=== PATIENT | female | born 1975 | race Two or more races ===

== ENCOUNTER 2016-03-28 21:36 | Observation (INO) | payer OTHER ==
[2016-03-28] MEDS ORDERED: HYDROmorphone 1 MG/ML 1 ML SYRINGE IVP STA ×2 (22:16→23:44)
--- NOTE | 2016-03-28 22:22 | ED ---
Back Pain HPI - General Chief Complaint: Back Pain/Injury Stated Complaint: leg pain Time Seen by Provider: 03/28/16 21:57 Source: patient, RN notes reviewed Limitations: no limitations - History of Present Illness Initial Comments: Patient is a 40-year-old female presents emergency room for evaluation of back pain. Patient states she had a laminectomy done by Dr. Mcbride on 03/04/16. Patient states she had history of low back pain with left leg radiculopathy. Patient states the pain did subside after surgery. Patient states she is now having increasing pain that radiates from the left side of her lower back down her buttocks and down her entire leg. Patient states the pain began about 2 days ago. Patient states she was has numbness and tingling going down her foot. Patient states she went to [facility] 2 days ago and they gave her pain medications and sent her home with Neurontin to add onto her pain medication regimen. Patient states the pain is worse today. Patient states she 's been taking Percocet and Neurontin with no relief of symptoms. Patient denies urinary or fecal incontinence. Patient does state it is starting to feel numb in her left groin. Patient denies any recent falls or trauma since the surgery. Patient denies fevers or chills. Patient denies chest pain or shortness of breath. Patient denies nausea or vomiting. Patient denies headache or dizziness. - Related Data Home Medications Medication Instructions Recorded Confirmed Ergocalciferol [Vitamin D2] 50,000 unit PO Q7D 11/12/14 03/28/16 Diazepam [Valium] 5 mg PO BID 03/02/16 03/28/16 Levofloxacin [Levaquin] 500 mg PO QAM 03/02/16 03/28/16 Levothyroxine Sodium [Synthroid] 125 mg PO QAM 03/02/16 03/28/16 busPIRone HCl [Buspar] 10 mg PO BID 03/02/16 03/28/16 oxyCODONE-APAP 5-325MG [Percocet 1 tab PO Q6HR PRN 03/02/16 03/28/16 5-325 mg] Venlafaxine HCl [Effexor XR] 250 mg PO DAILY 03/04/16 03/29/16 Previous Rx's Medication Instructions Recorded oxyCODONE-APAP 5-325MG [Percocet 1 tab PO Q6HR PRN #60 tab 03/05/16 5-325 mg] Allergies Allergy/AdvReac Type Severity Reaction Status Date / Time No Known Allergies Allergy Verified 03/28/16 21:51 Review of Systems ROS Statement: Those systems with pertinent positive or pertinent negative responses have been documented in the HPI. ROS Other: All systems not noted in ROS Statement are negative. Past Medical History Past Medical History: Hypertension, Thyroid Disorder Additional Past Medical History / Comment(s): CURRENT: UTI, BEING TREATED WITH ANTIBIOTICS.HAS BEEN OFF ANTIHYPERTENSIIVE MED SINCE WEIGHT LOSS POST LAB BAND OR. History of Any Multi-Drug Resistant Organisms: None Reported Past Surgical History: Tubal Ligation, Uterine Ablation Additional Past Surgical History / Comment(s): LAP BAND. LYMPH NODE REMOVED-NEG , ABLATION WITH NOVASURE.03-04-16 lumbar laminectomy/discetomy Past Anesthesia/Blood Transfusion Reactions: Motion Sickness, Postoperative Nausea & Vomiting (PONV) Past Psychological History: No Psychological Hx Reported Smoking Status: Current every day smoker Past Alcohol Use History: Rare Additional Past Alcohol Use History / Comment(s): SMOKED FOR 19 YR, 1PPD. Past Drug Use History: None Reported - Past Family History Mother Family Medical History: Cancer, Hyperlipidemia, Hypertension Additional Family Medical History / Comment(s): KIDNEY cancer, aortic stent, acoustic neuroma(ear) Father Family Medical History: Thyroid Disorder General Exam - General Exam Comments Initial Comments: Laying in exam room, uncomfortable secondary to pain. Limitations: no limitations General appearance: alert Head exam: Present: atraumatic, normocephalic, normal inspection Eye exam: Present: normal appearance ENT exam: Present: normal exam Neck exam: Present: normal inspection Respiratory exam: Present: normal lung sounds bilaterally. Absent: respiratory distress Cardiovascular Exam: Present: regular rate, normal rhythm, normal heart sounds Extremities exam: Present: normal inspection, full ROM, normal capillary refill Back exam: Absent: normal inspection ( vertical surgical incision over lumbosacral spine. No drainage, surrounding erythema or signs of infection.) Neurological exam: Present: alert, oriented X3 Psychiatric exam: Present: normal affect Skin exam: Present: warm, dry, intact, normal color. Absent: rash Course Vital Signs 03/28/16 03/28/16 03/28/16 21:49 21:51 22:51 Temperature 98.3 F Pulse Rate 91 84 89 Respiratory 20 16 16 Rate Blood Pressure 122/73 121/74 119/69 O2 Sat by Pulse 97 96 97 Oximetry 03/29/16 03/29/16 03/29/16 00:00 00:36 01:49 Temperature Pulse Rate 76 84 69 Respiratory 16 16 16 Rate Blood Pressure 119/74 123/78 112/68 O2 Sat by Pulse 97 98 98 Oximetry 03/29/16 02:25 Temperature Pulse Rate 73 Respiratory 16 Rate Blood Pressure 123/77 O2 Sat by Pulse 98 Oximetry Medical Decision Making - Medical Decision Making Patient is a 40-year-old female presents emergency room with worsening back pain post op laminectomy. Labs show no signs of infection. CT lumbosacral spine : There are postsurgical changes with L4 laminectomy. His moderate spinal stenosis at L4-L5. Exam is limited by lack of contrast. There is also L5-S1 disc herniation centrally towards the left side with spinal stenosis. MRI scanner contrast exam would be helpful for further evaluation to evaluate the degree of stenosis (per radiology). Case discussed with Dr. Winters. Dr. Winters discussed case with Dr. Gudino who agreed to admit patient. Patient will be admitted for further evaluation of intractable back pain. Plan discussed with patient. - Lab Data Result diagrams: 03/28/16 22:25 03/28/16 22:25 Lab Results 03/28/16 03/28/16 03/28/16 Range/Units 22:25 22:25 23:08 WBC 7.9 (3.8-10.6) k/uL RBC 4.36 (3.80-5.40) m/uL Hgb 12.4 D (11.4-16.0) gm/dL Hct 39.0 (34.0-46.0) % MCV 89.5 (80.0-100.0) fL MCH 28.5 (25.0-35.0) pg MCHC 31.9 (31.0-37.0) g/dL RDW 14.1 (11.5-15.5) % Plt Count 214 (150-450) k/uL Neutrophils % 51 % Lymphocytes % 39 % Monocytes % 5 % Eosinophils % 3 % Basophils % 1 % Neutrophils # 4.1 (1.3-7.7) k/uL Lymphocytes # 3.1 (1.0-4.8) k/uL Monocytes # 0.4 (0-1.0) k/uL Eosinophils # 0.2 (0-0.7) k/uL Basophils # 0.0 (0-0.2) k/uL Sodium 144 (137-145) mmol/L Potassium 4.0 (3.5-5.1) mmol/L Chloride 109 H (98-107) mmol/L Carbon Dioxide 26 (22-30) mmol/L Anion Gap 9 mmol/L BUN 11 (7-17) mg/dL Creatinine 0.70 (0.52-1.04) mg/dL Est GFR (MDRD) Af Amer >60 (>60 ml/min/1.73 sqM) Est GFR (MDRD) Non-Af >60 (>60 ml/min/1.73 sqM) Glucose 75 (74-99) mg/dL Calcium 9.0 (8.4-10.2) mg/dL Total Bilirubin 0.1 L (0.2-1.3) mg/dL AST 32 (14-36) U/L ALT 36 (9-52) U/L Alkaline Phosphatase 71 (38-126) U/L Total Protein 6.5 (6.3-8.2) g/dL Albumin 3.7 (3.5-5.0) g/dL Urine Color Yellow Urine Appearance Clear (Clear) Urine pH 5.5 (5.0-8.0) Ur Specific [place] 1.017 (1.001-1.035) Urine Protein Negative (Negative) Urine Glucose (UA) Negative (Negative) Urine Ketones Negative (Negative) Urine Blood Negative (Negative) Urine Nitrate Negative (Negative) Urine Bilirubin Negative (Negative) Urine Urobilinogen <2.0 (<2.0) mg/dL Ur Leukocyte Esterase Trace H (Negative) Urine RBC 1 (0-5) /hpf Urine WBC 4 (0-5) /hpf Ur Squamous Epith Cells 2 (0-4) /hpf Urine Bacteria Rare H (None) /hpf Hyaline Casts 1 (0-2) /lpf Urine Mucus Few H (None) /hpf - Radiology Data Radiology results: report reviewed, image reviewed Disposition Clinical Impression: Intractable back pain Disposition: [facility] Condition: Stable Decision Date: 03/29/16
[2016-03-28 22:44] LABS: Basophils % (A) 1 %; CHCM 33.7; Eosinophils # (A) 0.2 k/uL (0-0.7); Eosinophils % (A) 3 %; HDW 2.36; Luc # (Auto) 0.14; Luc % (Auto) 2; Lymphocytes # (A) 3.1 k/uL (1.0-4.8); Lymphocytes % (A) 39 %; MCH 28.5 pg (25.0-35.0); MCHC 31.9 g/dL (31.0-37.0); MCV 89.5 fL (80.0-100.0); Monocytes # (A) 0.4 k/uL (0-1.0); Monocytes % (A) 5 %; Neutrophils # (A) 4.1 k/uL (1.3-7.7); Neutrophils % (A) 51 %; RBC 4.36 m/uL (3.80-5.40); RDW 14.1 % (11.5-15.5); WBC 7.9 k/uL (3.8-10.6); WBC (Perox) 7.92
[2016-03-28 22:53] LABS: ALT 36 U/L (9-52); AST 32 U/L (14-36); Alkaline Phosphatase 71 U/L (38-126); Anion Gap 9 mmol/L; Blood Urea Nitrogen 11 mg/dL (7-17); Carbon Dioxide 26 mmol/L (22-30); Chloride 109 mmol/L (98-107); Glucose 75 mg/dL (74-99); Non-African American GFR(MDRD) >60 (>60 ml/min/1.73 sqM); Sodium 144 mmol/L (137-145); Total Bilirubin 0.1 mg/dL (0.2-1.3); Total Protein 6.5 g/dL (6.3-8.2)
[2016-03-28 22:55] LABS: HGB 12.4 gm/dL (11.4-16.0)
[2016-03-28 22:57] VITALS: RESP 16
[2016-03-28] MEDS ORDERED: DIAZEPAM 5 MG/ML 2 ML SYRINGE IVP STA (23:33)
[2016-03-28 23:36] LABS: Appearance,Urine Clear (Clear); Bacteria,Urine Rare /hpf; Bilirubin,Urine Negative (Negative); Glucose,Urine (UA) Negative (Negative); Ketones,Urine Negative (Negative); Leukocyte Esterase,Urine Trace (Negative); Mucus,Urine Few /hpf; Nitrite,Urine Negative (Negative); PH, Urine 5.5 (5.0-8.0); Particle Count 5579; Protein,Urine Negative (Negative); RBC,Urine 1 /hpf (0-5); Specific Gravity,Urine 1.017 (1.001-1.035); Squamous Epithelial Cell,Urine 2 /hpf (0-4); UA Billing (MACRO vs. MICRO) MICRO; Urobilinogen,Urine <2.0 mg/dL (<2.0); WBC,Urine 4 /hpf (0-5)
--- NOTE | 2016-03-29 00:21 | CT ---
EXAMINATION TYPE: CT lumbar spine wo con DATE OF EXAM: 03/28/2016 11:56 PM COMPARISON: NONE HISTORY: left leg pain, pt is s/p lumbar sx [address] DLP: 1121.20 mGycm Automated exposure control for dose reduction was used. Multiple axial sections were obtained from the level of T11-S4 with no contrast. Lumbar vertebrae have normal alignment. There is mild narrowing at L4-5 L5-S1 disc spaces. There is s ubcutaneous edema over the lower lumbar spine at L4-5. There is posterior disc herniation at L4-5 and into the spinal canal. There is spinal stenosis at L4-5. I see no bony destructive process. There is laminectomy defect at L4-5. There is a posterior small central disc herniation at L5-S1 with some na rrowing of the spinal canal. There is a developmental small spinal canal. I see no compression fractu re. There is no paraspinal mass. Sacroiliac joints appear normal. IMPRESSION: There are postsurgical changes with L4 laminectomy. There is moderate spinal stenosis at L4-5. Exam i s limited by lack of contrast. There is also L5 S1 disc herniation centrally and towards the left mahesh e with spinal stenosis. MR scan or contrast exam would be helpful for further evaluation to evaluate the degree of stenosis.
[2016-03-29] MEDS ORDERED: ORPHENADRINE 30 MG/ML 2 ML VIAL IVP STA (01:33)
[2016-03-29] MEDS ORDERED: KETOROLAC 30 MG/ML 1 ML VIAL IVP STA (01:33)
[2016-03-29] MEDS ORDERED: NALOXONE 0.4 MG/ML 1 ML VIAL IV PRN (02:03)
[2016-03-29] MEDS ORDERED: ONDANSETRON 4 MG/2 ML VIAL IVP PRN (02:03)
[2016-03-29 03:26] VITALS: BMI 24.3
[2016-03-29] MEDS: SODIUM CHLORIDE 0.9% 1,000 ML IV SCH ×2 (03:38→16:23)
[2016-03-29] MEDS: KETOROLAC 30 MG/ML 1 ML VIAL IVP SCH ×3 (05:07→17:39)
[2016-03-29] MEDS: HYDROmorphone 1 MG/ML 1 ML SYRINGE IV PRN ×3 (07:39→15:08)
[2016-03-29 10:29] VITALS: TEMP 97.9
[2016-03-29 16:20] VITALS: BP 130/87; PULSE 87
--- NOTE | 2016-04-08 14:25 | P.HPOR ---
History of Present Illness H&P Date: 04/08/16 Chief Complaint: back pain Patient was admitted through the ER to Dr. Gudino for back pain. She is post op from a back surgery performed by Dr. Mcbride in February. I ordered an MRI w/wo contrast and planned to see her later in day 2016 or have /Shreyas Luna PA-C see her the morning of March 30. . She left AMA prior to being seen or having MRI done. Past Medical History Past Medical History: Hypertension, Thyroid Disorder Additional Past Medical History / Comment(s): CURRENT: UTI, BEING TREATED WITH ANTIBIOTICS.HAS BEEN OFF ANTIHYPERTENSIIVE MED SINCE WEIGHT LOSS POST LAB BAND OR. History of Any Multi-Drug Resistant Organisms: None Reported Past Surgical History: Tubal Ligation, Uterine Ablation Additional Past Surgical History / Comment(s): LAP BAND. LYMPH NODE REMOVED-NEG , ABLATION WITH NOVASURE.03-04-16 lumbar laminectomy/discetomy Past Anesthesia/Blood Transfusion Reactions: Motion Sickness, Postoperative Nausea & Vomiting (PONV) Past Psychological History: No Psychological Hx Reported Smoking Status: Current every day smoker Past Alcohol Use History: Rare Additional Past Alcohol Use History / Comment(s): SMOKED FOR 19 YR, 1PPD. Past Drug Use History: None Reported - Past Family History Mother Family Medical History: Cancer, Hyperlipidemia, Hypertension Additional Family Medical History / Comment(s): KIDNEY cancer, aortic stent, acoustic neuroma(ear) Father Family Medical History: Thyroid Disorder Medications and Allergies Home Medications Medication Instructions Recorded Confirmed Type Multivitamins, Thera [Multivitamin] 1 tab PO DAILY 10/11/13 03/31/16 History Ferrous Sulfate [Feosol] 325 mg PO DAILY 03/29/16 03/31/16 History Levothyroxine Sodium [Synthroid] 125 mcg PO DAILY 03/29/16 03/31/16 History Venlafaxine HCl [Effexor XR] 150 mg PO DAILY 03/29/16 03/31/16 History busPIRone HCl [Buspar] 10 mg PO BID 03/29/16 03/31/16 History Diazepam [Valium] 5 mg PO TID 03/31/16 04/01/16 History Ergocalciferol (Vitamin D2) 50,000 unit PO Q7D 03/31/16 03/31/16 History [Vitamin D2] oxyCODONE-APAP 5-325MG [Percocet 1 tab PO Q8H PRN 03/31/16 04/01/16 History 5-325 mg] predniSONE 60 mg PO DIRECTED 03/31/16 04/01/16 History Allergies Allergy/AdvReac Type Severity Reaction Status Date / Time No Known Allergies Allergy Verified 04/01/16 11:06 Results - Labs Result Diagrams: 03/28/16 22:25 03/28/16 22:25 Assessment and Plan (1) Lumbar back pain with radiculopathy affecting left lower extremity Narrative/Plan: F/U with Dr. Mcbride Status: Acute
== END 2016-03-29 18:27 | disposition left against medical advice (07) ==
LOC: EC 21:36 → 5MS5E 03-29 02:03
PROVIDERS: ADMIT Orthopaedic Surgery Sports Medicine; ATTEND Orthopaedic Surgery Sports Medicine
DX: M51.27 Other intervertebral disc displacement, lumbosacral region (principal); N39.0 Urinary tract infection, site not specified; M54.10 Radiculopathy, site unspecified; M48.06 Spinal stenosis, lumbar region; R20.0 Anesthesia of skin; E07.9 Disorder of thyroid, unspecified; F17.200 Nicotine dependence, unspecified, uncomplicated; Z98.1 Arthrodesis status; Z79.899 Other long term (current) drug therapy; Z98.84 Bariatric surgery status; Z82.49 Family history of ischemic heart disease and other diseases of the circulatory system; Z80.51 Family history of malignant neoplasm of kidney
CPT/HCPCS: 99284; 96374; 96375 ×3; 96376; 36415; 80053; 85025; 81001; 72131; G0378; J2360; J3360; J1885; J1170 ×2

== ENCOUNTER 2016-03-29 23:01 | Observation (INO) | payer OTHER ==
[2016-03-29] MEDS ORDERED: SODIUM CHLORIDE 0.9% 1,000 ML IV STA (23:50)
[2016-03-29] MEDS ORDERED: SODIUM CHLORIDE 0.9% 500 ML IV STA (23:50)
[2016-03-29] MEDS ORDERED: LORazepam 2 MG/ML SYRINGE IV STA (23:50)
[2016-03-29] MEDS ORDERED: MORPHINE SULFATE 4 MG/ML SYRINGE IV STA (23:50)
--- NOTE | 2016-03-29 23:53 | ED ---
General Adult HPI - General Chief complaint: Anxiety Stated complaint: Anxiety Time Seen by Provider: 03/29/16 23:20 Source: patient, RN notes reviewed, old records reviewed Mode of arrival: wheelchair Limitations: no limitations - History of Present Illness Initial comments: This is a 40-year-old female to the ER for evaluation. Patient said yesterday for evaluation of pain. Pain in her back down her left leg slightly her left lower cavity. Patient has history of recent back surgery. Also awaiting of severe anxiety. Patient states she is very stressed out about her recent surgery, recent situation, ability to take care of her family. Ability to keep her job. Patient states her pain is very chronic in nature but is not getting better he could even be getting worse. Again denies any fevers or significant shortness of breath or chest pain. No bowel pain and nausea vomiting or diarrhea. - Related Data Home Medications Medication Instructions Recorded Confirmed Multivitamins, Thera [Multivitamin] 1 tab PO DAILY 10/11/13 03/29/16 Ferrous Sulfate [Feosol] 325 mg PO DAILY 03/29/16 03/29/16 Levothyroxine Sodium [Synthroid] 125 mcg PO DAILY 03/29/16 03/29/16 Venlafaxine HCl [Effexor XR] 75 mg PO DAILY 03/29/16 03/29/16 Venlafaxine HCl [Effexor XR] 150 mg PO DAILY 03/29/16 03/29/16 busPIRone HCl [Buspar] 10 mg PO BID 03/29/16 03/29/16 Allergies Allergy/AdvReac Type Severity Reaction Status Date / Time No Known Allergies Allergy Verified 03/29/16 23:18 Review of Systems ROS Statement: Those systems with pertinent positive or pertinent negative responses have been documented in the HPI. ROS Other: All systems not noted in ROS Statement are negative. Past Medical History Past Medical History: Hypertension, Thyroid Disorder History of Any Multi-Drug Resistant Organisms: None Reported Past Surgical History: Back Surgery, Bariatric Surgery Additional Past Surgical History / Comment(s): Band placed 11/15/[address] Caldera; L4-S1 Laminectomy Past Anesthesia/Blood Transfusion Reactions: No Reported Reaction Past Psychological History: Anxiety Smoking Status: Current every day smoker Past Alcohol Use History: None Reported Past Drug Use History: None Reported General Exam Limitations: no limitations General appearance: alert, in no apparent distress, anxious Head exam: Present: atraumatic, normocephalic, normal inspection Eye exam: Present: normal appearance, PERRL, EOMI. Absent: scleral icterus, conjunctival injection, periorbital swelling ENT exam: Present: normal exam, mucous membranes moist Neck exam: Present: normal inspection. Absent: tenderness, meningismus, lymphadenopathy Respiratory exam: Present: normal lung sounds bilaterally. Absent: respiratory distress, wheezes, rales, rhonchi, stridor Cardiovascular Exam: Present: regular rate, normal rhythm, normal heart sounds. Absent: systolic murmur, diastolic murmur, rubs, gallop, clicks GI/Abdominal exam: Present: soft, normal bowel sounds. Absent: distended, tenderness, guarding, rebound, rigid Extremities exam: Present: normal inspection, full ROM, normal capillary refill. Absent: tenderness, pedal edema, joint swelling, calf tenderness Back exam: Present: normal inspection Neurological exam: Present: alert, oriented X3, CN II-XII intact Psychiatric exam: Present: normal affect, normal mood Skin exam: Present: warm, dry, intact, normal color. Absent: rash Course Vital Signs 03/29/16 03/30/16 23:09 00:30 Temperature 98 F Pulse Rate 103 H 89 Respiratory 18 16 Rate Blood Pressure 138/90 160/105 O2 Sat by Pulse 100 100 Oximetry - Reevaluation(s) Reevaluation #1: 03/29/16 23:52 Patient will recently was admitted to Hospital see her surgeon, patient left before was able to make contact. States she got very anxious and just wanted to go home Reevaluation #2: 03/30/16 00:56 Patient's pain this point is improved, anxiety is improved EKG Findings - EKG Comments: EKG Findings:: EKG shows sinus rhythm rate of 77, CA 136, QRS 80, QTC 445 Medical Decision Making - Medical Decision Making 40 female at ER for evaluation of pain. Patient presented today for evaluation of postop pain, patient did recently Sever from back surgery, states pain is getting worse. No fevers. Patient was admitted to hospital yesterday for increasing pain symptoms. At this time patient will be admitted for postop pain evaluation - Lab Data Result diagrams: 03/30/16 00:12 Lab Results 03/30/16 03/30/16 03/30/16 Range/Units 00:12 00:12 00:12 WBC 6.7 (3.8-10.6) k/uL RBC 4.32 (3.80-5.40) m/uL Hgb 12.5 (11.4-16.0) gm/dL Hct 37.5 (34.0-46.0) % MCV 86.8 (80.0-100.0) fL MCH 28.9 (25.0-35.0) pg MCHC 33.3 (31.0-37.0) g/dL RDW 13.7 (11.5-15.5) % Plt Count 210 (150-450) k/uL Neutrophils % 65 % Lymphocytes % 26 % Monocytes % 5 % Eosinophils % 2 % Basophils % 0 % Neutrophils # 4.3 (1.3-7.7) k/uL Lymphocytes # 1.7 (1.0-4.8) k/uL Monocytes # 0.3 (0-1.0) k/uL Eosinophils # 0.2 (0-0.7) k/uL Basophils # 0.0 (0-0.2) k/uL PT 10.0 (9.0-12.0) sec INR 1.0 (<1.1) APTT 24.8 (22.0-30.0) sec D-Dimer 0.34 (<0.60) mg/L FEU Urine Color Light Yellow Urine Appearance Clear (Clear) Urine pH 8.0 (5.0-8.0) Ur Specific [place] 1.004 (1.001-1.035) Urine Protein Negative (Negative) Urine Glucose (UA) Negative (Negative) Urine Ketones Negative (Negative) Urine Blood Moderate H (Negative) Urine Nitrate Negative (Negative) Urine Bilirubin Negative (Negative) Urine Urobilinogen <2.0 (<2.0) mg/dL Ur Leukocyte Esterase Negative (Negative) Urine RBC 43 H (0-5) /hpf Urine WBC 3 (0-5) /hpf Ur Squamous Epith Cells 1 (0-4) /hpf - Radiology Data Radiology results: report reviewed (Chest x-ray 2 view negative, ultrasound left lower extremity is pending), image reviewed Disposition Clinical Impression: Acute anxiety, Post-operative pain Disposition: ADMITTED IP TO THIS [facility] Condition: Fair Instructions: Generalized Anxiety Disorder (ED)
[2016-03-30 00:40] LABS: Basophils % (A) 0 %; CH 29.8; CHCM 34.5; Eosinophils # (A) 0.2 k/uL (0-0.7); Eosinophils % (A) 2 %; HCT 37.5 % (34.0-46.0); HDW 2.44; HGB 12.5 gm/dL (11.4-16.0); Luc # (Auto) 0.11; Luc % (Auto) 2; Lymphocytes # (A) 1.7 k/uL (1.0-4.8); Lymphocytes % (A) 26 %; MCH 28.9 pg (25.0-35.0); MCHC 33.3 g/dL (31.0-37.0); MCV 86.8 fL (80.0-100.0); Mean Platelet Volume 7.8; Monocytes # (A) 0.3 k/uL (0-1.0); Monocytes % (A) 5 %; Neutrophils # (A) 4.3 k/uL (1.3-7.7); Neutrophils % (A) 65 %; RBC 4.32 m/uL (3.80-5.40); RDW 13.7 % (11.5-15.5); WBC 6.7 k/uL (3.8-10.6); WBC (Perox) 7.08
[2016-03-30 00:42] LABS: Appearance,Urine Clear (Clear); Bilirubin,Urine Negative (Negative); Glucose,Urine (UA) Negative (Negative); Ketones,Urine Negative (Negative); Leukocyte Esterase,Urine Negative (Negative); Nitrite,Urine Negative (Negative); Particle Count 639; Protein,Urine Negative (Negative); RBC,Urine 43 /hpf (0-5); Specific Gravity,Urine 1.004 (1.001-1.035); Squamous Epithelial Cell,Urine 1 /hpf (0-4); UA Billing (MACRO vs. MICRO) MICRO; Urobilinogen,Urine <2.0 mg/dL (<2.0); WBC,Urine 3 /hpf (0-5)
[2016-03-30 00:49] LABS: ALT 42 U/L (9-52); AST 29 U/L (14-36); Alkaline Phosphatase 82 U/L (38-126); Anion Gap 9 mmol/L; Blood Urea Nitrogen 10 mg/dL (7-17); Calcium 8.8 mg/dL (8.4-10.2); Carbon Dioxide 26 mmol/L (22-30); Chloride 107 mmol/L (98-107); Glucose 90 mg/dL (74-99); Magnesium 2.2 mg/dL (1.6-2.3); Non-African American GFR(MDRD) >60 (>60 ml/min/1.73 sqM); Phosphorous 3.2 mg/dL (2.5-4.5); Sodium 142 mmol/L (137-145); Total Bilirubin 0.2 mg/dL (0.2-1.3); Total Protein 6.6 g/dL (6.3-8.2)
[2016-03-30 00:54] LABS: Partial Thromboplastin Time 24.8 sec (22.0-30.0)
[2016-03-30] MEDS ORDERED: SODIUM CHLORIDE 0.9% 1,000 ML IV ONE (00:55)
[2016-03-30 02:07] VITALS: BMI 24.3
--- NOTE | 2016-03-30 02:19 | XR ---
EXAMINATION TYPE: XR chest 2V DATE OF EXAM: 03/30/2016 1:10 AM COMPARISON: February 27, 2016 HISTORY: Anxiety and weakness TECHNIQUE: Frontal and lateral views of the chest are obtained. FINDINGS: There is no focal air space opacity, pleural effusion, or pneumothorax seen. Mild chronic lung changes are suggested bilaterally. The cardiac silhouette size is within normal limits. The o sseous structures are intact. Mild degenerative changes in the thoracic spine are present. IMPRESSION: No acute cardiopulmonary process. No significant interval change.
[2016-03-30] MEDS: MORPHINE SULFATE 4 MG/ML SYRINGE IVP PRN ×3 (03:07→19:35)
[2016-03-30] MEDS: methylPREDNISolone SOD SUCCI 125 MG/2 ML VIAL IV SCH ×3 (05:06→17:15)
[2016-03-30] MEDS: LORazepam 2 MG/ML SYRINGE IV PRN ×4 (06:25→22:56)
[2016-03-30 07:11] LABS: Glucose,Whole Blood 97 mg/dL (75-99)
[2016-03-30] MEDS: ENOXAPARIN 40 MG/0.4 ML SYRINGE SQ SCH (10:00)
[2016-03-30 11:44] LABS: Glucose,Whole Blood 117 mg/dL (75-99)
--- NOTE | 2016-03-30 13:22 | P.HPOR ---
History of Present Illness H&P Date: 03/30/16 Chief Complaint: Left lower extremity radiculopathy and cramping of the left calf Patient is a pleasant 40-year-old female who is well known to our service who is seen and examined at the bedside for further evaluation for her significant left lower extremity radiculopathy. She is known to have recently undergone a laminectomy with discectomy and decompression at L4-5 and L5-S1 performed on 10/2015. Postsurgically she had been improving but states over the past 4 days she's been experiencing significant left lower extremity pain. She was seen in our office on 03/19/2016 with some the same similar complaints. She presented to the emergency department yesterday, 03/29/2016, but left the hospital after she states she was told she would not be examined by orthopedic spine. She returned today as her symptoms are not improving. She states she has significant pain with numbness and tingling that radiates down the left posterior thigh, into the left posterior calf, stopping at the ankle. The pain in her left calf feels like a muscle cramp. She has some low back pain as well to a lesser degree. Since being admitted a venous ultrasound Doppler has been performed and these results are still pending. She denies any specific left lower extremity weakness. She denies any right lower extremity radiculopathy or weakness. She denies currently experiencing anxiety Past Medical History Past Medical History: Hypertension, Thyroid Disorder History of Any Multi-Drug Resistant Organisms: None Reported Past Surgical History: Back Surgery, Bariatric Surgery, Tubal Ligation Additional Past Surgical History / Comment(s): Band placed 11/15/[address] Caldera; L4-S1 Laminectomy March 04 Past Anesthesia/Blood Transfusion Reactions: No Reported Reaction Past Psychological History: Anxiety Smoking Status: Current every day smoker Past Alcohol Use History: None Reported Past Drug Use History: None Reported - Past Family History Mother Family Medical History: Cancer Medications and Allergies Home Medications Medication Instructions Recorded Confirmed Type Multivitamins, Thera [Multivitamin] 1 tab PO DAILY 10/11/13 03/29/16 History Ferrous Sulfate [Feosol] 325 mg PO DAILY 03/29/16 03/29/16 History Levothyroxine Sodium [Synthroid] 125 mcg PO DAILY 03/29/16 03/29/16 History Venlafaxine HCl [Effexor XR] 75 mg PO DAILY 03/29/16 03/29/16 History Venlafaxine HCl [Effexor XR] 150 mg PO DAILY 03/29/16 03/29/16 History busPIRone HCl [Buspar] 10 mg PO BID 03/29/16 03/29/16 History Allergies Allergy/AdvReac Type Severity Reaction Status Date / Time No Known Allergies Allergy Verified 03/29/16 23:18 Physical Examination Physical exam: Patient is awake, alert, and oriented 3 Vital signs stable Good chest excursion with deep inspiration and expiration Abdomen soft nontender Examination of lumbar spine reveals skin is intact with no abrasions, lacerations, or bruises; no erythema, purulence or signs of infection Evidence of a well-healed incision along the midline of the lumbar spine Evidence of a tattoo along the midline of the lower lumbar spine Dorsiflexion, plantarflexion, and extensor hallucis longus positive sustained bilaterally Lower extremity strength 5/5 bilaterally Straight leg test negative bilateral lower extremities No signs DVT; Some calf pain of the left lower extremity but not the right lower extremity No pain with internal and external rotation of the hips bilaterally Neurovascularly intact Results - Labs Labs: Abnormal Lab Results - Last 24 Hours (Table) 03/30/16 Range/Units 11:26 POC Glucose (mg/dL) 117 H (75-99) mg/dL Result Diagrams: 03/30/16 00:12 03/30/16 00:12 Assessment and Plan (1) Status post lumbar surgery Status: Acute (2) Lumbar back pain with radiculopathy affecting left lower extremity Status: Acute (3) Pain of left calf Status: Acute (4) Post-operative pain Status: Acute Plan: Assessment: Status post laminectomy with discectomy and decompression L4-5 and L5-S1 performed on 03/04/2016 Left lower extremity radiculopathy Low back pain Left calf pain Plan: 1. Given her significant symptoms of left lower extremity radiculopathy and her recurrent presentation to the emergency department, we will currently plan to obtain an MRI of the lumbar spine with and without contrast for further evaluation. Depending on the results of this MRI, we will discuss further treatment options at that time including continued conservative treatment or further invasive treatment. Patient feels this is a good plan of care. 2. Continue pain control with morphine as prescribed. Patient will also continue to receive Solu-Medrol 60 mg IV every 6 hours. She may continue with Ativan as prescribed as needed. 3. We will continue to follow patient closely 4. I have discussed this patient in detail with Dr. Leonardo Mcbride and he agrees with this plan. We will adjust our plan of care accordingly following MRI results lumbar spine. Time with Patient: Greater than 30
--- NOTE | 2016-03-30 14:11 | US ---
EXAMINATION TYPE: US venous doppler duplex LE LT DATE OF EXAM: 03/30/2016 12:37 PM COMPARISON: NONE CLINICAL HISTORY: US. SIDE PERFORMED: Left leg pain and swelling VESSELS IMAGED: External Iliac Vein (EIV) Common Femoral Vein Deep Femoral Vein Greater Saphenous Vein * Femoral Vein Popliteal Vein Small Saphenous Vein * Proximal Calf Veins (* superficial vessels) Findings: Left Leg: Spontaneous flow and compressibility noted. IMPRESSION: 1. No diagnostic evidence of DVT.
--- NOTE | 2016-03-30 15:45 | CONS ---
DATE OF CONSULTATION: REASON FOR CONSULTATION: Advice regarding hypertension and multiple medical issues requested by Dr. Mcbride. HISTORY OF PRESENT ILLNESS: This 40-year-old with a past medical history of multiple medical problems, hypertension, hypothyroidism, back surgery, history of bariatric surgery being followed by Dr. Urena in the outpatient setting is complaining of back pain. The patient had previous back surgery by Dr. Mcbride. The pain was in the back and radiating to the left leg. Patient also had some anxiety. No history of fever, rigors. No history of headache, loss of consciousness, seizures. PAST MEDICAL HISTORY: Hypertension, hypothyroidism, back surgery, bariatric surgery, tubal ligation and band . MEDICATIONS: 1. BuSpar 10 mg p.o. daily. 2. Effexor-XR 75 mg p.o. daily. 4. Multivitamins 1 mg daily. 5. Synthroid 125 mcg p.o. daily. 6. Iron sulfate 320 mg p.o. daily. ALLERGIES: None. FAMILY HISTORY: History of cancer in the family. SOCIAL HISTORY: History of alcohol occasional, history of smoking. REVIEW OF SYSTEMS: ENT: No diminished hearing, diminished vision. CARDIOVASCULAR: No angina. RESPIRATORY: No cough or hemoptysis. GI: No nausea. : No dysuria. NERVOUS SYSTEM: No numbness or weakness. ALLERGY/IMMUNOLOGY: No asthma or hayfever. MUSCULOSKELETAL: As mentioned earlier. HEMATOLOGY: No history of anemia. ENDOCRINE: No history of diabetes, hypothyroidism. CONSTITUTIONAL: As mentioned earlier. DERMATOLOGY: Negative. RHEUMATOLOGY: Negative. PSYCHIATRY: As mentioned earlier. PHYSICAL EXAMINATION: Alert and oriented x3. Pulse is 79, blood pressure 125/80, respirations 16, temperature 97.9, pulse ox 93% on room air. HEENT: Conjunctivae normal. NECK: No jugular venous distention. CARDIOVASCULAR: S1 and S2, muffled. RESPIRATORY: Breath sounds diminished at the bases. No rhonchi, no crackles. ABDOMEN: Soft, nontender. No mass palpable. LEGS: No edema, no swelling. NERVOUS SYSTEM: Higher function as mentioned. Moves all four limbs. No focal motor or sensory deficits. Movement of the left leg is painful. LABS: Glucose 117, RBC 43. ASSESSMENT: 1. Back pain and leg pain for evaluation. 2. Anxiety. 3. Increased random blood sugar. 4. Hypertension. 5. Hypothyroidism. 6. History of back surgery, degenerative joint disease. 7. History of bariatric surgery. 8. History lap band. 9. History of nicotine dependence. RECOMMENDATIONS AND DISCUSSION: This 40-year-old woman presented with multiple medical problems, I would recommend to continue the current medications, symptomatic treatment. Closely follow up with Dr. Mcbride. Otherwise, MRI has been ordered. I recommend DVT prophylaxis. I also recommend Accu-Cheks also because the patient is also started on IV steroids. Will follow the patient closely with you. Home medications also will be continued. Further recommendations to follow. Thank you Dr. Mcbride for letting us participate in the care of this patient. CAMMY
[2016-03-30 16:27] LABS: Glucose,Whole Blood 123 mg/dL (75-99)
[2016-03-30] MEDS: LEVOTHYROXINE 125 MCG TAB PO SCH (16:49)
[2016-03-30] MEDS: INSULIN LISPRO (humaLOG) 300 UNIT/3 ML VIAL SQ SCH ×2 (17:16→21:52)
[2016-03-30 20:45] LABS: Hemoglobin A1C 4.9 % (4.2-6.1)
[2016-03-30 21:21] LABS: Glucose,Whole Blood 119 mg/dL (75-99)
[2016-03-30] MEDS: busPIRone HCl 10 MG TAB PO SCH (21:55)
[2016-03-31] MEDS: methylPREDNISolone SOD SUCCI 125 MG/2 ML VIAL IV SCH ×2 (00:45→06:28)
[2016-03-31] MEDS: LEVOTHYROXINE 125 MCG TAB PO SCH (06:28)
[2016-03-31 06:58] LABS: Glucose,Whole Blood 121 mg/dL (75-99)
[2016-03-31 07:47] VITALS: BP 120/74; PULSE 73; RESP 15; TEMP 97.6
[2016-03-31] MEDS ORDERED: FERROUS SULFATE 325 MG TAB PO SCH (09:00)
[2016-03-31] MEDS ORDERED: VENLAFAXINE HCL ER 150 MG CAP PO SCH (09:00)
[2016-03-31] MEDS ORDERED: VENLAFAXINE HCL ER 75 MG CAP PO SCH (09:00)
--- NOTE | 2016-03-31 09:31 | MR ---
EXAMINATION TYPE: MR lumbar spine wo/w con DATE OF EXAM: 03/31/2016 8:37 AM COMPARISON: CT lumbar spine from 3 days earlier. HISTORY: Left LE radiculopathy; recent lumbar surgery per order. Low back pain for 16 years causing p ain into left buttocks thigh and calf per patient. History of recent back surgery 3 weeks ago. TECHNIQUE: Multiplanar, multisequence images of the lumbar spine is performed without and with IV contrast, util izing 15 mL intravenous MultiHance FINDINGS: I will assume there are hypoplastic T12 ribs bilaterally on CT instead of 6 lumbar type selene tebra for counting purposes. Sagittal images of the lumbar spine show vertebral body heights and alig nment to remain satisfactory. There is disc desiccation with mild disc space narrowing L4-L5 level. There is disc desiccation with moderate to severe disc space narrowing and vacuum disc phenomenon at L5-S1 level. There is heterogeneous increased T1 and T2 signal consistent with Modic type II degenera tive change at L5-S1 level. Posterior disc herniations are seen at L4-L5 and L5-S1 levels on sagittal images. The conus medullaris is normal in position and signal ending at mid L1 vertebral body level. Minimal multilevel anterior spurring is redemonstrated. Axial images show the T12-L1, L1-L2, L2-L3, and L3-L4 levels all to remain within normal limits. Axial images at the L4-L5 level show left-sided laminectomy defect with enhancing probable scar tissu e extending from lateral recess posteriorly to the skin surface near axial image 8. There is persiste nt lobulated broad-based posterior disc protrusion and mild facet degenerative changes and ligamentum flavum hypertrophy causing spinal canal effacement and/or stenosis seen best on axial image 8. There is bilateral mild to moderate anterior inferior neural foraminal narrowing seen on sagittal images. Axial images at the L5-S1 level show mild to moderate facet degenerative changes bilaterally. There i s left-sided laminectomy defect identified. There is right paracentral disc protrusion. There is more prominent left epidural tissue causing significant spinal canal stenosis seen best on axial image 3. This is more hyperintense on T2-weighted images in the adjacent disc space. No definitive enhancemen t is seen. Significant mass effect on spinal canal or stenosis is present seen best on axial images 2 through 4. This area appears possibly contiguous with the disc space on sagittal image 7 and axial i mage 2 but postcontrast images show suggestion of some irregular peripheral enhancement on axial imag e 2. Favor this is not related to disc. More heterogeneous enhancing presumed scar tissue is seen pos teriorly to this. Central left S1 nerve is obliterated by abnormal tissue. No well-formed rim-enhanci ng fluid collection or abscess is identified at this level. Mild bilateral neural foraminal narrowing is noted. In the subcutaneous tissue there is 1 cm thin-walled fluid collection possible seroma on axial image 11 just left of midline at L4 level noted. No suspicious retroperitoneal pathology is seen. IMPRESSION: Postsurgical changes left L4-L5 and L5-S1 levels with persistent disc herniation, facet a rthropathy, and enhancing presumed scar tissue causing spinal canal effacement and/or stenosis. Findi ngs are noted more prominent at L5-S1 level where a left-sided epidural abnormal tissue causes promin ent spinal canal stenosis, this could reflect phlegmon or developing scar. Central left S1 nerve is o bliterated at this level. Further details are noted as discussed above.
[2016-03-31] MEDS: busPIRone HCl 10 MG TAB PO SCH (09:39)
[2016-03-31] MEDS: ENOXAPARIN 40 MG/0.4 ML SYRINGE SQ SCH (09:39)
[2016-03-31] MEDS: INSULIN LISPRO (humaLOG) 300 UNIT/3 ML VIAL SQ SCH (09:40)
--- NOTE | 2016-03-31 11:14 | P.HPOR ---
History of Present Illness H&P Date: 03/31/16 Chief Complaint: Left lower extremity pain with weakness Patient is a 40-year-old female is well known to our service. She had undergone a laminectomy decompression L4 5 L5-S1 for disc herniation approximately 3 and half weeks ago. On follow-up she was doing quite well. She had been healing well and had good improvement in her back and lower extremity symptoms with her initial surgery however over this past weekend she developed significant increase in her pain at her back and left lower extremity. She has been having worsening symptoms and improvement presented to the hospital and initially left but then returned again to the hospital and was readmitted in regards to her back and left lower extremity symptoms. She has been treated with IV medications cleaning steroids and narcotic medications and for further follow-up and evaluation. She underwent MRI today. She continues to have significant pain in her left lower extremity. She has weakness at her left lower extremity as well. She denies any fevers chills or night sweats. Review of Systems She has weakness at her left lower extremity was significant pain down the back of her leg. She's not any chest pain shortness breath. She is not having fevers chills or night sweats. Past Medical History Past Medical History: Hypertension, Thyroid Disorder History of Any Multi-Drug Resistant Organisms: None Reported Past Surgical History: Back Surgery, Bariatric Surgery, Tubal Ligation Additional Past Surgical History / Comment(s): Band placed 11/15/[address] Caldera; L4-S1 Laminectomy March 04 Past Anesthesia/Blood Transfusion Reactions: No Reported Reaction Past Psychological History: Anxiety Smoking Status: Current every day smoker Past Alcohol Use History: None Reported Past Drug Use History: None Reported - Past Family History Mother Family Medical History: Cancer Medications and Allergies Home Medications Medication Instructions Recorded Confirmed Type Multivitamins, Thera [Multivitamin] 1 tab PO DAILY 10/11/13 03/29/16 History Ferrous Sulfate [Feosol] 325 mg PO DAILY 03/29/16 03/29/16 History Levothyroxine Sodium [Synthroid] 125 mcg PO DAILY 03/29/16 03/29/16 History Venlafaxine HCl [Effexor XR] 75 mg PO DAILY 03/29/16 03/29/16 History Venlafaxine HCl [Effexor XR] 150 mg PO DAILY 03/29/16 03/29/16 History busPIRone HCl [Buspar] 10 mg PO BID 03/29/16 03/29/16 History Allergies Allergy/AdvReac Type Severity Reaction Status Date / Time No Known Allergies Allergy Verified 03/29/16 23:18 Physical Examination Osteopathic Statement: *. No significant issues noted on an osteopathic structural exam other than those noted in the History and Physical/Consult. - L Spine: dermatomal strength & reflexes left Strength: ankle plantar flexion: 2/5 (The incision of the low back is healing well. She has a tattoo her lower back. She has significant weakness with plantarflexion and left lower extremity. She is out of 5 dorsiflexor left and right.) Results - Labs Labs: Abnormal Lab Results - Last 24 Hours (Table) 03/30/16 03/30/16 03/30/16 Range/Units 11:26 16:17 21:18 POC Glucose (mg/dL) 117 H 123 H 119 H (75-99) mg/dL 03/31/16 Range/Units 06:42 POC Glucose (mg/dL) 121 H (75-99) mg/dL Result Diagrams: 03/30/16 00:12 03/30/16 00:12 - Diagnostic results Lumbar MRI with contrast: report reviewed, image reviewed (New MRI was performed this morning. It shows large recurrent disc herniation L5-S1 with severe stenosis L5-S1. The posterior surgical changes L4 5 and L5-S1. There is no evidence of significant fluid collection or infection.) Assessment and Plan Plan: Left lower extremity radiculopathy with weakness recurrent disc herniation L5-S1 3 weeks status post laminectomy decompression and discectomy L4 5 L5-S1 The patient has a large recurrent disc herniation L5-S1 which is the primary source of her recurrent symptoms at her left lower extremity. She initially had been doing fairly well with her surgery a few weeks ago but seems to have experienced a recurrent herniation this past weekend. She has significant disc degeneration and large recurrence of herniation with acute weakness at left lower extremity. Given the large herniation and weakness with her inability to function well think that she is a candidate for revision decompression and laminectomy discectomy at L5-S1. I discussed this with her at length. I discussed the possibility of continued trying to go with conservative treatment versus possibly revision surgery and the possibly of surgery with fusion. Given her weakness and her severe symptoms think that surgery is a good option for her. It seems unlikely that conservative treatment will give her significant benefit particularly in light of the significant weakness at left lower extremity. She is still fairly young and has significant activity and I would like to try to avoid fusion surgery still for now. I discussed this with her. I think that her best surgical option would be to pursue revision laminectomy and discectomy at L5-S1. She is interested in pursuing surgical intervention possibly tomorrow and would like to try to go home today to see her daughters. I think that is reasonable if we can control her pain tonight she can presented again for surgical intervention tomorrow. They've given her appropriate discharge instructions and appropriate risks, occasions alternatives and benefits in regards to her revision surgery. I answered her questions best my ability healing she can understand. She'll plan for discharge home today and return tomorrow for revision laminectomy and discectomy on . Time with Patient: Greater than 30
[2016-03-31] MEDS ORDERED: MULTIVITAMINS, THERA 1 EACH TAB PO SCH (12:00)
--- NOTE | 2016-04-01 12:22 | PN ---
DATE OF SERVICE: 03/31/2016 This 40-year-old woman who was admitted after back pain and leg pain, has been closely monitored. disc prolapse was noted by lumbar spine MRI by Dr. Mcbride. Outpatient surgery is being recommended at this time. Prominent L5-S1 was noted. There is no history of fevers, no history of headache, loss of consciousness or seizures. No chest pain or palpitations. On exam, alert and oriented x3. Pulse is 73, blood pressure 120/74, respirations 15, temperature 97.6, pulse ox 97% on room air. HEENT: Conjunctivae normal. NECK: No jugular venous distention. CARDIOVASCULAR: S1 and S2, muffled. RESPIRATORY: Breath sounds diminished at the bases. No rhonchi, no crackles. ABDOMEN: Soft, nontender. No mass palpable. LEGS: No edema, no swelling. NERVOUS SYSTEM: Higher function mentioned earlier. Moves all 4 limbs. No focal deficits. Labs are noted. ASSESSMENT: 1. Back and leg pain with possible disc herniation L5-S1. 2. Anxiety. 3. Increased random blood sugar. 4. Hypertension. 5. Hypothyroidism. 6. Back surgery, degenerative joint disease. 7. History of bariatric surgery. 8. History of lap band. 9. History of nicotine dependence. RECOMMENDATIONS AND DISCUSSION: Recommend to continue current medications. Continue with monitoring and symptomatic treatment. Otherwise, closely follow with primary physician in the outpatient setting. Further recommendations to follow. See orders for further details. MTDD
== END 2016-03-31 12:06 | disposition home or self-care (01) ==
LOC: EC 23:01 → MERGE 03-30 00:58 → 3SUR 03-30 00:58
PROVIDERS: ADMIT Orthopaedic Surgery Orthopaedic Surgery of the Spine; ATTEND Orthopaedic Surgery Orthopaedic Surgery of the Spine
DX: M51.17 Intervertebral disc disorders with radiculopathy, lumbosacral region (principal); F41.9 Anxiety disorder, unspecified; G89.18 Other acute postprocedural pain; M79.662 Pain in left lower leg; E03.9 Hypothyroidism, unspecified; I10 Essential (primary) hypertension; F17.200 Nicotine dependence, unspecified, uncomplicated; Z98.890 Other specified postprocedural states; Z98.84 Bariatric surgery status; Z79.899 Other long term (current) drug therapy; Z80.9 Family history of malignant neoplasm, unspecified
CPT/HCPCS: 99285 ×2; 96374 ×2; 96375 ×2; 96361 ×2; 36415; 93005; 85379; 80053; 83036; 83735; 84100; 85025; 85610; 85730; 81001; 87086; 71020; 93971; 72158; G0378 ×2; J2060; J2270; J2930 ×2; J1650 ×2; A9577; 96372; 96376

== ENCOUNTER 2016-04-01 10:55 | Day surgery (SDC) | payer OTHER ==
[2016-03-31 15:10] VITALS: BMI 25.8
[~2016-04-01 10:55] MED LIST: DEXAMETHASONE SOD PHOSPHATE 10 MG/ML 1 ML VIAL IV ONE; HYDROmorphone 1 MG/ML 1 ML SYRINGE IVP PRN; LACTATED RINGERS 1,000 ML IV SCH; MIDAZOLAM 2 MG/2 ML VIAL IV PRN; ONDANSETRON 4 MG/2 ML VIAL IVP ONE
[2016-04-01 11:18] VITALS: RESP 16
[2016-04-01] MEDS ORDERED: LIDOCAINE 1% 20 ML VIAL (10MG/ML) FOR IV START INTRADERMA ONE (11:18)
[2016-04-01] MEDS: LACTATED RINGERS 1,000 ML IV SCH ×2 (11:19→12:07)
[2016-04-01 11:24] LABS: Glucose,Whole Blood 73 mg/dL (75-99)
[2016-04-01] MEDS ORDERED: KETOROLAC 30 MG/ML 1 ML VIAL ONE (12:09)
[2016-04-01] MEDS ORDERED: ceFAZolin 1,000 MG VIAL ONE (12:09)
[2016-04-01] MEDS ORDERED: ROCURONIUM BROMIDE 10 MG/ML 10 ML VIAL IV ONE (12:09)
[2016-04-01] MEDS ORDERED: SODIUM CHLORIDE 0.9% IRRIG 1,000 ML BTL IRRIGATION ONE (12:09)
[2016-04-01] MEDS ORDERED: BACITRACIN 50,000 UNIT VIAL ONE (12:09)
[2016-04-01] MEDS ORDERED: methylPREDNISolone ACETATE 40 MG/ML 1 ML VIAL MISCELLANE ONE (12:09)
[2016-04-01] MEDS ORDERED: MIDAZOLAM 2 MG/2 ML VIAL ONE (12:09)
[2016-04-01] MEDS ORDERED: SUCCINYLCHOLINE CHLORIDE 100 MG/5 ML SYR IV ONE (12:09)
[2016-04-01] MEDS ORDERED: SODIUM CHLORIDE 0.9% 100 ML BAG ONE (12:09)
[2016-04-01] MEDS ORDERED: HYDROmorphone (PF) 1 MG/ML ONE (12:09)
[2016-04-01] MEDS ORDERED: THROMBIN (BOVINE) 5,000 UNIT VIAL TOPICAL ONE (12:09)
[2016-04-01] MEDS ORDERED: GELATIN SPONGE,ABSORB (LARGE) 1 EACH SPONGE TOPICAL ONE (12:09)
[2016-04-01] MEDS ORDERED: LIDOCAINE 0.5%-EPI 1:200,000 50 ML VIAL SQ ONE (12:09)
[2016-04-01] MEDS ORDERED: NEOSTIGMINE 1 MG/ML 10 ML VIAL ONE (12:09)
[2016-04-01] MEDS ORDERED: POLYMYXIN B 500,000 UNIT VIAL ONE (12:09)
[2016-04-01] MEDS ORDERED: BUPIVACAINE (PF) 0.25% 30 ML VIAL SQ ONE (12:09)
[2016-04-01] MEDS ORDERED: GLYCOPYRROLATE 0.2 MG/ML 2 ML VIAL ONE (12:09)
[2016-04-01] MEDS ORDERED: LIDOCAINE 1% INJ 10MG/ML (20 ML MDV) ONE (12:09)
[2016-04-01] MEDS ORDERED: PROPOFOL 10 MG/ML 20 ML VIAL IV ONE (12:09)
[2016-04-01] MEDS ORDERED: fentaNYL (PF) 50 MCG/ML 2 ML AMP ONE (12:09)
[2016-04-01] MEDS ORDERED: SODIUM CHLORIDE 0.9% 100 ML with ceFAZolin 2,000 MG IV ONE ×2 (12:15)
[2016-04-01] MEDS: BACITRACIN 50,000 UNIT, POLYMYXIN B 500,000 UNIT in SODIUM CHLORIDE 0.9% IRRIGATIO 1,00... IRRIGATION ONE ×2 (12:50→16:38)
--- NOTE | 2016-04-01 13:02 | FL ---
EXAMINATION TYPE: FL guidance operating room DATE OF EXAM: 04/01/2016 12:58 PM COMPARISON: None HISTORY:Lumbar laminectomy and discectomy L4-5 Fluoroscopy support supplied to the referring clinician. See dictated report from orthopedic surgery , one second fluoroscopy time supplied, intraoperative C-arm image documents the procedure
[2016-04-01] MEDS ORDERED: HYDROcodone/APAP 5-325MG 1 EACH TAB PO PRN ×2 (13:13)
[2016-04-01] MEDS ORDERED: HYDROmorphone 1 MG/ML 1 ML SYRINGE IVP PRN ×2 (13:13)
[2016-04-01] MEDS ORDERED: DIAZEPAM 5 MG TAB PO PRN (13:13)
[2016-04-01] MEDS ORDERED: IBUPROFEN 600 MG TAB PO PRN (13:13)
[2016-04-01] MEDS ORDERED: BENZOCAINE/MENTHOL LOZENG 1 EACH LOZENGE MUCOUS MEM PRN (13:13)
[2016-04-01] MEDS ORDERED: SODIUM CHLORIDE 0.9% 1,000 ML IV SCH (13:15)
--- NOTE | 2016-04-01 13:23 | P.OP ---
Date of Procedure: 04/01/16 Preoperative Diagnosis: Recurrent disc herniation L5-S1 Left lower extremity weakness Left lower extremity radiculopathy History of laminectomy decompression and discectomy L5-S1 Postoperative Diagnosis: Same Anesthesia: GETA Pathology: none sent Condition: stable Disposition: PACU Description of Procedure: BRIEF OPERATIVE NOTE Preoperative Diagnosis: Recurrent disc herniation L5-S1, left lower extremity radiculopathy and weakness, history of laminectomy decompression and discectomy L5-S1 Postoperative Diagnosis: Same Procedure: Revision Laminectomy and decompression L5-S1 Revision Discectomy for decompression L5-S1 Surgeon: Dr. Mcbride Amusement Park Ride Mechanic: None Anesthesia: General anesthesia per Dr. Arzola Estimated blood loss: Approximately 20 mL Complications: None apparent Components implanted: None Disposition: To recovery room in good stable condition. OPERATIVE INDICATIONS The patient has been having issues in their lower back and lower extremities. A few weeks ago the patient had undergone surgical intervention for laminectomy decompression and discectomy L4 5 and L5-S1 for disc herniations at those levels with significant stenosis and lower extremity radiculopathy which had failed conservative treatment. The patient had been through conservative treatment. She initially did well postoperatively and had improvement in her symptoms. However over this past weekend she had acute recurrence of her symptoms at her left lower extremity particularly over and S1 distribution. She was having severe debility and was admitted to the hospital because of the symptoms at her left lower extremity which showed evidence of weakness at the extremity despite conservative management. She is found have a large recurrent disc herniation at L5-S1 which correlated well with her recurrent symptoms at left lower extremity as well as with her weakness. We had multiple discussions as to various treatment options. We discussed various treatment options including surgery, and the patient wishes to proceed with surgery We discussed the risk, patient's alternatives and benefits of surgery including but not limited to, risk of bleeding risk of infection, risk of need for further surgery , risk of decreased, loss of motion, loss of function, nerve damage, paralysis, heart attack, blindness and . OPERATIVE SUMMARY After discussing all the risks, patient alternatives and benefits at length, the patient elected to proceed with surgical intervention, signed informed consent, and presented for their procedure. The patient was seen and examined in the preoperative holding area and the surgical site was marked. The patient was given antibiotics and brought to the operating room. The patient was sedated and intubated by anesthesia in standard fashion. The patient was positioned on to the operating room table in a prone position on the appropriate frame which was well-padded and well molded. We were careful to pad any bony prominences and pressure points. We were careful to maintain the patient's cervical spine and good neutral alignment and position throughout. The patient was prepped and draped in a normal standard fashion. An appropriate timeout and keystone protocol performed. We were able to proceed with the surgery. Fluoroscopy was utilized to establish the appropriate level. The local wound area was infiltrated with local anesthetic. The patient has a tattoo at her low back and she was aware that the incision would involve her tattoo. We used the prior incision line. An incision was made at the midline longitudinally over the appropriate levels at L5-S1. Dissection was taken down subcutaneously to the level of the fascia which was split midline. Dissection was taken over the lamina. I was able to dissect down well over the prior dissection site at the interspace of L5-S1 were noted the prior laminectomy. Intraoperative fluoroscopy was taken which showed a marker at the appropriate level at L5-S1. With the appropriate level positively confirmed, we were able to proceed with revision laminectomy. The wound was copiously irrigated and suctioned dry as had been done periodically throughout the case. I performed a laminectomy with a combination of curettes and a high-speed bur and Kerrison rongeurs. A small medial facetectomy was performed again further access. A partial foraminotomy was also performed to further expose the herniation. Further Portions of the ligamentum flavum were taken down to expose the dura and traversing nerve root. There was a large disc herniation with extruded fragment causing severe distortion of the neurologic structures at that level. I was able to mobilize the traversing nerve root and gain access to the disc space. Note was made of obvious compression from the disc. I mobilized the large extruded disc fragment. I was able to perform discectomy and remove any extruded disc fragments and any loose fragments from within the disc itself. There are other loose fragments within the disc which were removed. I tried to preserve the disc annulus that appeared stable. The nerve was freely mobile and there was no further compression. There were no further extruded fragments noted. There is no evidence of dural tear or leak. Good hemostasis maintained. The wound was copiously irrigated and suctioned dry. Good decompression and discectomy was noted. We were able to proceed with closure. The fascia was closed for a watertight closure. The subcuticular tissue was closed with absorbable suture. I reapproximated the tattoo well. The wound was cleaned and dried and dressed with the appropriate dressing. The drapes were broken down. The patient was gently rolled back onto their hospital bed being careful to maintain their cervical spine and good neutral alignment and position. They were woken up by anesthesia, extubated, and brought to the recovery room in good stable condition. The patient will be admitted to the hospital for observation and for appropriate postoperative care, medical management and monitoring. We will continue to follow them closely about the postoperative course.
[2016-04-01] MEDS: LACTATED RINGERS 1,000 ML IV ONE ×2 (13:48→14:13)
--- NOTE | 2016-04-01 14:03 | XR ---
Limited right hip HISTORY: Discectomy Intraoperative C-arm image documents the procedure
[2016-04-01 16:30] VITALS: TEMP 98.3
[2016-04-01 16:31] VITALS: BP 127/83; PULSE 73
[2016-04-01] MEDS ORDERED: ceFAZolin 2 GM in SODIUM CHLORIDE 0.9% 100 ML IVPB SCH (20:00)
== END 2016-04-01 18:45 | disposition home or self-care (01) ==
LOC: OR 10:55 → EDSTATUS 12:30 → MERGE 12:30 → 3SUR 13:36 → OR 18:45
PROVIDERS: ATTEND Orthopaedic Surgery Orthopaedic Surgery of the Spine
DX: M51.17 Intervertebral disc disorders with radiculopathy, lumbosacral region (principal); Z98.890 Other specified postprocedural states; E07.9 Disorder of thyroid, unspecified; I10 Essential (primary) hypertension; F32.9 Major depressive disorder, single episode, unspecified; F41.9 Anxiety disorder, unspecified; Z79.899 Other long term (current) drug therapy; F17.200 Nicotine dependence, unspecified, uncomplicated
CPT/HCPCS: 63030; 81025; 72020; J2250; J1030; J2710; J2405; J0690; J2001; J3010; J1885; J1170; J0330; J2704

== ENCOUNTER → 2016-09-20 | Outpatient (CLI) | payer OTHER ==
[2016-09-20 19:23] VITALS: BP 118/78; PULSE 79; RESP 16; TEMP 98; BMI 29.0
--- NOTE | 2016-10-04 16:51 | P.HPBAR ---
Bariatric H&P - History & Physicial H&P Date: 09/20/16 History & Physicial: Visit/CC: band fill Patient initial contact: Initial weight: 113.398 kg Initial weight in pounds: 250.00 Height: 5 ft 9 in Initial BMI: 36.9 Last weight: Current weight: 89.403 kg Current weight in pounds: 197.10 Current BMI: 29.0 [place] body weight (based on NIH guidelines): 65.771 kg Excess body weight loss: 50.3% The patient is a 41 year-old F who presents for Bariatric Assessment. Patient has not been seen several years. She is wishing to have an adjustment of her band. She currently feels hungry and has gained weight. Past Medical History Past Medical History: Hypertension, Thyroid Disorder Additional Past Medical History / Comment(s): CURRENT: UTI, BEING TREATED WITH ANTIBIOTICS.HAS BEEN OFF ANTIHYPERTENSIIVE MED SINCE WEIGHT LOSS POST LAB BAND OR. History of Any Multi-Drug Resistant Organisms: None Reported Past Surgical History: Back Surgery, Bariatric Surgery, Tubal Ligation, Uterine Ablation Additional Past Surgical History / Comment(s): Band placed 11/15/[address] Caldera; Laminectomy, UTERINE ABLATION, LYMPH NODE FROM NECK, 04-01-17 REVISION LAMINECTOMY/DECOMPRESSION/DISCETOMY L5-S1, spinal fusion Past Anesthesia/Blood Transfusion Reactions: Motion Sickness, Postoperative Nausea & Vomiting (PONV) Past Psychological History: Anxiety, No Psychological Hx Reported Smoking Status: Former smoker - Past Family History Mother Family Medical History: Cancer, Hyperlipidemia, Hypertension Additional Family Medical History / Comment(s): KIDNEY cancer, aortic stent, acoustic neuroma(ear) Father Family Medical History: Thyroid Disorder Surgical - Exam Vital Signs Temp Pulse Resp BP 98 F 79 16 118/78 09/20/16 19:18 09/20/16 19:18 09/20/16 19:18 09/20/16 19:18 - General well developed - Abdomen Abdomen: soft, non tender Bariatric Assessment & Plan Plan: The patient's lap band was adjusted. He she had 1 mL added to her band. She currently has 5 mL in the band. She'll follow-up in one month recheck. Bariatric Checklist Checklist: Plan: Checklist: EGD: 1. Hiatal hernia: 2. H. Pylori: HgbA1c: Vitamin D: Smoking: Former smoker Primary care physician referral: maria elena yan ([place]) Psychiatry clearance: Cardiology clearance: Sleep study: Diet journal: VTE risk score: VTE risk level: Rehab needs at discharge:
== END | disposition home or self-care (01) ==
LOC: BARWHC3 14:54
PROVIDERS: ATTEND Surgery
DX: Z48.815 Encounter for surgical aftercare following surgery on the digestive system (principal); I10 Essential (primary) hypertension; F41.9 Anxiety disorder, unspecified; Z98.84 Bariatric surgery status
CPT/HCPCS: 99202

== ENCOUNTER → 2016-10-20 | Outpatient (CLI) | payer OTHER ==
[2016-10-20 10:08] VITALS: BP 103/67; PULSE 75; TEMP 98.4; BMI 27.2
--- NOTE | 2016-10-20 10:59 | P.HPBAR ---
Bariatric H&P - History & Physicial H&P Date: 10/20/16 History & Physicial: Visit/CC: lap band followup Patient initial contact: Initial weight: 113.398 kg Initial weight in pounds: 250.00 Height: 5 ft 9 in Initial BMI: 36.9 Last weight: Current weight: 83.642 kg Current weight in pounds: 184.40 Current BMI: 27.2 [place] body weight (based on NIH guidelines): 65.771 kg Excess body weight loss: 62.4% The patient is a 41 year-old F who presents for Bariatric Assessment. Patient' s complaints of GERD dysphagia. She has lost 14 pounds since her last visit. Past Medical History Past Medical History: Hypertension, Thyroid Disorder Additional Past Medical History / Comment(s): CURRENT: UTI, BEING TREATED WITH ANTIBIOTICS.HAS BEEN OFF ANTIHYPERTENSIIVE MED SINCE WEIGHT LOSS POST LAB BAND OR. History of Any Multi-Drug Resistant Organisms: None Reported Past Surgical History: Back Surgery, Bariatric Surgery, Tubal Ligation, Uterine Ablation Additional Past Surgical History / Comment(s): Band placed 11/15/[address] Caldera; Laminectomy, UTERINE ABLATION, LYMPH NODE FROM NECK, 04-01-16 REVISION LAMINECTOMY/DECOMPRESSION/DISCETOMY L5-S1, spinal fusion Past Anesthesia/Blood Transfusion Reactions: Motion Sickness, Postoperative Nausea & Vomiting (PONV) Past Psychological History: Anxiety, No Psychological Hx Reported Smoking Status: Former smoker Past Alcohol Use History: None Reported, Rare Additional Past Alcohol Use History / Comment(s): SMOKED FOR 19 YR, 1PPD. Past Drug Use History: None Reported - Past Family History Mother Family Medical History: Cancer, Hyperlipidemia, Hypertension Additional Family Medical History / Comment(s): KIDNEY cancer, aortic stent, acoustic neuroma(ear) Father Family Medical History: Thyroid Disorder Surgical - Exam Vital Signs Temp Pulse BP 98.4 F 75 103/67 10/20/16 10:03 10/20/16 10:03 10/20/16 10:03 - General well developed, no distress - Eyes PERRL - Neck no masses - Respiratory normal expansion - Cardiovascular Rhythm: regular - Abdomen Abdomen: soft, non tender Bariatric Assessment & Plan Plan: GERD, dysphagia. Patient LAP-BAND had 0.5 mL remove her band. She currently has 4.5 mL of half. She is quadrant without difficulty. Bariatric Checklist Checklist: Plan: Checklist: EGD: 1. Hiatal hernia: 2. H. Pylori: HgbA1c: Vitamin D: Smoking: Former smoker Primary care physician referral: maria elena yan ([place]) Psychiatry clearance: Cardiology clearance: Sleep study: Diet journal: VTE risk score: VTE risk level: Rehab needs at discharge:
== END | disposition home or self-care (01) ==
LOC: BARWHC3 09:50
PROVIDERS: ATTEND Surgery
DX: Z48.815 Encounter for surgical aftercare following surgery on the digestive system (principal); K21.9 Gastro-esophageal reflux disease without esophagitis; Z87.891 Personal history of nicotine dependence; Z98.84 Bariatric surgery status
CPT/HCPCS: 99212

== ENCOUNTER → 2018-04-03 | Outpatient (CLI) | payer OTHER ==
--- NOTE | 2018-04-03 16:14 | P.HPBAR ---
Bariatric H&P - History & Physicial H&P Date: 04/03/18 History & Physicial: Visit/CC: Patient initial contact: Initial weight: 113.398 kg Initial weight in pounds: Height: Initial BMI: Last weight: 184 Current weight: 193 Current weight in pounds: Current BMI: [place] body weight (based on NIH guidelines): Excess body weight loss: The patient is a 42 year-old F who presents for Bariatric Assessment. Patient presents today for LAP-BAND adjustment. He currently feels hungry. Past Medical History Past Medical History: Hypertension, Thyroid Disorder Additional Past Medical History / Comment(s): CURRENT: UTI, BEING TREATED WITH ANTIBIOTICS.HAS BEEN OFF ANTIHYPERTENSIIVE MED SINCE WEIGHT LOSS POST LAB BAND OR. History of Any Multi-Drug Resistant Organisms: None Reported Past Surgical History: Back Surgery, Bariatric Surgery, Tubal Ligation, Uterine Ablation Additional Past Surgical History / Comment(s): Band placed 11/15/[address] Caldera; Laminectomy, UTERINE ABLATION, LYMPH NODE FROM NECK, --17 REVISION LAMINECTOMY/DECOMPRESSION/DISCETOMY L5-S1, spinal fusion Past Anesthesia/Blood Transfusion Reactions: Motion Sickness, Postoperative Nausea & Vomiting (PONV) Past Psychological History: Anxiety, No Psychological Hx Reported Smoking Status: Former smoker Past Alcohol Use History: None Reported, Rare Additional Past Alcohol Use History / Comment(s): SMOKED FOR 19 YR, 1PPD. Past Drug Use History: None Reported - Past Family History Mother Family Medical History: Cancer, Hyperlipidemia, Hypertension Additional Family Medical History / Comment(s): KIDNEY cancer, aortic stent, acoustic neuroma(ear) Father Family Medical History: Thyroid Disorder Surgical - Exam - General well developed, no distress - Eyes PERRL - ENT normal pinna - Neck no masses - Respiratory normal expansion - Cardiovascular Rhythm: regular - Abdomen Abdomen: soft, non tender Bariatric Assessment & Plan Plan: Patient's lap band was adjusted. She had 0.5 mL added to her band. She currently has 5 mL in the band. She was able to water without difficulty. She' ll follow-up in one month. Bariatric Checklist Checklist: Plan: Checklist: EGD: 1. Hiatal hernia: 2. H. Pylori: HgbA1c: Vitamin D: Smoking: Former smoker Primary care physician referral: maria elena yan ([place]) Psychiatry clearance: Cardiology clearance: Sleep study: Diet journal: VTE risk score: VTE risk level: Rehab needs at discharge:
[2018-04-03 16:15] VITALS: BP 114/77; PULSE 89; RESP 16; TEMP 98.4; BMI 28.5
== END ==
LOC: BARWHC3 15:30
PROVIDERS: ATTEND Surgery
DX: Z48.815 Encounter for surgical aftercare following surgery on the digestive system (principal); Z98.84 Bariatric surgery status; Z87.891 Personal history of nicotine dependence; Z98.890 Other specified postprocedural states; Z98.51 Tubal ligation status
CPT/HCPCS: 99212

== ENCOUNTER → 2018-09-25 | Outpatient (CLI) | payer OTHER ==
[2018-09-25 15:01] VITALS: RESP 16
[2018-09-25 15:17] VITALS: BMI 27.6
--- NOTE | 2018-10-13 13:40 | P.HPBAR ---
Bariatric H&P - History & Physicial H&P Date: 09/25/18 History & Physicial: Visit/CC: [place] Consult Patient initial contact: Initial weight: 113.398 kg Initial weight in pounds: 250.00 Height: 5 ft 9 in Initial BMI: 36.9 Last weight: Current weight: 84.822 kg Current weight in pounds: 187.00 Current BMI: 27.6 [place] body weight (based on NIH guidelines): 65.771 kg Excess body weight loss: 60.0% The patient is a 43 year-old F who presents for Bariatric Assessment. Patient presents today for lab band follow. She is requesting a fill of her LAP-BAND. She's also requesting information on panniculectomy. 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 Past Medical History Past Medical History: Hypertension, Thyroid Disorder Additional Past Medical History / Comment(s): CURRENT: UTI, BEING TREATED WITH ANTIBIOTICS.HAS BEEN OFF ANTIHYPERTENSIIVE MED SINCE WEIGHT LOSS POST LAB BAND OR. History of Any Multi-Drug Resistant Organisms: None Reported Past Surgical History: Back Surgery, Bariatric Surgery, Tubal Ligation, Uterine Ablation Additional Past Surgical History / Comment(s): Band placed 11/15/[address] Caldera; Laminectomy, UTERINE ABLATION, LYMPH NODE FROM NECK, 1--17 REVISION LAMINECTOMY/DECOMPRESSION/DISCETOMY L5-S1, spinal fusion Past Anesthesia/Blood Transfusion Reactions: Motion Sickness, Postoperative Nausea & Vomiting (PONV) Smoking Status: Former smoker - Past Family History Mother Family Medical History: Cancer, Hyperlipidemia, Hypertension Additional Family Medical History / Comment(s): KIDNEY cancer, aortic stent, acoustic neuroma(ear) Father Family Medical History: Thyroid Disorder Surgical - Exam Vital Signs Resp 16 09/25/18 14:55 - General well developed, well nourished, no distress - Abdomen Well-formed panniculus with evidence of chronic skin irritation. Abdomen: soft, non tender Bariatric Assessment & Plan Plan: Patient's lap band was adjusted. She had 0.5 mL added to her LAP-BAND. She currently has 5.3 mL in the band. She is given a detailed information appendix rectum. Patient will follow-up in 4 weeks. Bariatric Checklist Checklist: Plan: Checklist: EGD: 1. Hiatal hernia: 2. H. Pylori: HgbA1c: Vitamin D: Smoking: Former smoker Primary care physician referral: maria elena yan ([place]) Psychiatry clearance: Cardiology clearance: Sleep study: Diet journal: VTE risk score: VTE risk level: Rehab needs at discharge:
== END | disposition home or self-care (01) ==
LOC: BARWHC3 14:38
PROVIDERS: ATTEND Surgery
DX: Z46.51 Encounter for fitting and adjustment of gastric lap band (principal); Z98.84 Bariatric surgery status; Z87.891 Personal history of nicotine dependence
CPT/HCPCS: 99211

== ENCOUNTER → 2019-06-11 | Outpatient (CLI) | payer BC | END | disposition home or self-care (01) | CPT/HCPCS: 99212 ==

== ENCOUNTER → 2021-11-02 | Outpatient (CLI) | payer BC ==
[2021-11-02 15:02] VITALS: BP 111/71; PULSE 101; RESP 16; TEMP 98.4; BMI 26.9
--- NOTE | 2021-11-02 15:40 | P.HPBAR ---
Bariatric H&P - History & Physicial H&P Date: 11/02/21 History & Physicial: Visit/CC: band adj Patient initial contact: Initial weight: 113.398 kg Initial weight in pounds: 250.00 Height: 5 ft 9 in Initial BMI: 36.9 Last weight: Current weight: 82.554 kg Current weight in pounds: 182.00 Current BMI: 26.9 [place] body weight (based on NIH guidelines): 65.771 kg Excess body weight loss: 64.7% The patient is a 46 year-old F who presents for Bariatric Assessment. Patient presents today for LAP-BAND adjustment. She currently hungry. She is requesting a fill her band. Past Medical History Past Medical History: Hypertension, Thyroid Disorder Additional Past Medical History / Comment(s): CURRENT: UTI, BEING TREATED WITH ANTIBIOTICS.HAS BEEN OFF ANTIHYPERTENSIIVE MED SINCE WEIGHT LOSS POST LAB BAND OR. History of Any Multi-Drug Resistant Organisms: None Reported Past Surgical History: Back Surgery, Bariatric Surgery, Tubal Ligation, Uterine Ablation Additional Past Surgical History / Comment(s): Band placed 11/15/[address] Caldera; Laminectomy, UTERINE ABLATION, LYMPH NODE FROM NECK, 1-5-17 REVISION LAMINECTOMY/DECOMPRESSION/DISCETOMY L5-S1, spinal fusion Past Anesthesia/Blood Transfusion Reactions: Motion Sickness, Postoperative Nausea & Vomiting (PONV) Past Psychological History: Anxiety, No Psychological Hx Reported Smoking Status: Unknown if ever smoked Past Alcohol Use History: None Reported, Rare Additional Past Alcohol Use History / Comment(s): SMOKED FOR 19 YR, 1PPD. Past Drug Use History: None Reported - Past Family History Mother Family Medical History: Cancer, Hyperlipidemia, Hypertension Father Family Medical History: Thyroid Disorder Surgical - Exam Vital Signs Temp Pulse Resp BP 98.4 F 101 H 16 111/71 11/02/21 14:58 11/02/21 14:58 11/02/21 14:58 11/02/21 14:58 - General well developed, well nourished, no distress - Eyes PERRL - ENT normal pinna - Neck no masses - Respiratory normal expansion - Cardiovascular Rhythm: regular - Abdomen Abdomen: soft, non tender Bariatric Assessment & Plan Plan: Patient's LAP-BAND was adjusted. She'll 0.5 mL added to the band. She currently has 6 mL in the band. She'll follow-up in 4 weeks Bariatric Checklist Checklist: Plan: Checklist: EGD: 1. Hiatal hernia: 2. H. Pylori: HgbA1c: Vitamin D: Smoking: Former smoker Primary care physician referral: maria elena yan ([place]) Psychiatry clearance: Cardiology clearance: Sleep study: Diet journal: VTE risk score: VTE risk level: Rehab needs at discharge:
== END ==
LOC: BARWHC3 13:30
PROVIDERS: ATTEND Surgery
DX: Z46.51 Encounter for fitting and adjustment of gastric lap band (principal); Z87.891 Personal history of nicotine dependence; I10 Essential (primary) hypertension; F41.9 Anxiety disorder, unspecified
CPT/HCPCS: 99212

== ENCOUNTER → 2021-11-23 | Outpatient (CLI) | payer BC ==
[2021-11-23 14:29] VITALS: BP 112/75; PULSE 87; TEMP 98; BMI 26.1
--- NOTE | 2021-12-07 15:09 | P.HPBAR ---
Bariatric H&P - History & Physicial H&P Date: 11/23/21 History & Physicial: Visit/CC: lap band Patient initial contact: Initial weight: 113.398 kg Initial weight in pounds: 250.00 Height: 5 ft 9 in Initial BMI: 36.9 Last weight: Current weight: 80.286 kg Current weight in pounds: 177.00 Current BMI: 26.1 [place] body weight (based on NIH guidelines): 65.771 kg Excess body weight loss: 69.5% The patient is a 46 year-old F who presents for Bariatric Assessment. She presents today for bariatric follow. She's requesting a fill of her band. Past Medical History Past Medical History: Hypertension, Thyroid Disorder Additional Past Medical History / Comment(s): CURRENT: UTI, BEING TREATED WITH ANTIBIOTICS.HAS BEEN OFF ANTIHYPERTENSIIVE MED SINCE WEIGHT LOSS POST LAB BAND OR. History of Any Multi-Drug Resistant Organisms: None Reported Past Surgical History: Back Surgery, Bariatric Surgery, Tubal Ligation, Uterine Ablation Additional Past Surgical History / Comment(s): Band placed 11/15/[address] Caldera; Laminectomy, UTERINE ABLATION, LYMPH NODE FROM NECK, 04-01-17 REVISION LAMINECTOMY/DECOMPRESSION/DISCETOMY L5-S1, spinal fusion Past Anesthesia/Blood Transfusion Reactions: Motion Sickness, Postoperative Nausea & Vomiting (PONV) Past Psychological History: Anxiety, No Psychological Hx Reported Smoking Status: Unknown if ever smoked Past Alcohol Use History: None Reported, Rare Additional Past Alcohol Use History / Comment(s): SMOKED FOR 19 YR, 1PPD. Past Drug Use History: None Reported - Past Family History Mother Family Medical History: Cancer, Hyperlipidemia, Hypertension Father Family Medical History: Thyroid Disorder Surgical - Exam Vital Signs Temp Pulse BP 98 F 87 112/75 11/23/21 14:25 11/23/21 14:25 11/23/21 14:25 - General well developed, well nourished, no distress - Eyes PERRL - ENT normal pinna - Neck no masses - Respiratory normal expansion - Cardiovascular Rhythm: regular - Abdomen Abdomen: soft, non tender Bariatric Assessment & Plan Plan: Patient's LAP-BAND was adjusted. She had 0.5 mL added to the band. She'll follow-up in 4 weeks. Bariatric Checklist Checklist: Plan: Checklist: EGD: 1. Hiatal hernia: 2. H. Pylori: HgbA1c: Vitamin D: Smoking: Former smoker Primary care physician referral: maria elena yan ([place]) Psychiatry clearance: Cardiology clearance: Sleep study: Diet journal: VTE risk score: VTE risk level: Rehab needs at discharge:
== END ==
LOC: BARWHC3 14:00
PROVIDERS: ATTEND Surgery
DX: Z46.51 Encounter for fitting and adjustment of gastric lap band (principal); Z87.891 Personal history of nicotine dependence; I10 Essential (primary) hypertension; F41.9 Anxiety disorder, unspecified
CPT/HCPCS: 99212

== ENCOUNTER → 2021-12-07 | Outpatient (CLI) | payer BC ==
[2021-12-07 14:34] VITALS: BP 109/73; PULSE 71; TEMP 98.1; BMI 25.2
--- NOTE | 2021-12-07 14:43 | P.HPBAR ---
Bariatric H&P - History & Physicial H&P Date: 12/07/21 History & Physicial: Visit/CC: lap band f/u Patient initial contact: Initial weight: 113.398 kg Initial weight in pounds: 250.00 Height: 5 ft 9 in Initial BMI: 36.9 Last weight: Current weight: 77.564 kg Current weight in pounds: 171.00 Current BMI: 25.2 [place] body weight (based on NIH guidelines): 65.771 kg Excess body weight loss: 75.2% The patient is a 46 year-old F who presents for Bariatric Assessment. Patient presents today for LAP-BAND follow-up. She has complaints of dysphagia. Past Medical History Past Medical History: Hypertension, Thyroid Disorder Additional Past Medical History / Comment(s): CURRENT: UTI, BEING TREATED WITH ANTIBIOTICS.HAS BEEN OFF ANTIHYPERTENSIIVE MED SINCE WEIGHT LOSS POST LAB BAND OR. History of Any Multi-Drug Resistant Organisms: None Reported Past Surgical History: Back Surgery, Bariatric Surgery, Tubal Ligation, Uterine Ablation Additional Past Surgical History / Comment(s): Band placed 11/15/[address] Caldera; Laminectomy, UTERINE ABLATION, LYMPH NODE FROM NECK, 1--17 REVISION LAMINECTOMY/DECOMPRESSION/DISCETOMY L5-S1, spinal fusion Past Anesthesia/Blood Transfusion Reactions: Motion Sickness, Postoperative Nausea & Vomiting (PONV) Past Psychological History: Anxiety, No Psychological Hx Reported Smoking Status: Unknown if ever smoked Past Alcohol Use History: None Reported, Rare Additional Past Alcohol Use History / Comment(s): SMOKED FOR 19 YR, 1PPD. Past Drug Use History: None Reported - Past Family History Mother Family Medical History: Cancer, Hyperlipidemia, Hypertension Father Family Medical History: Thyroid Disorder Surgical - Exam Vital Signs Temp Pulse BP 98.1 F 71 109/73 12/07/21 14:12 12/07/21 14:12 12/07/21 14:12 - General well developed, well nourished - Eyes PERRL - ENT normal pinna - Neck no masses - Respiratory normal expansion - Cardiovascular Rhythm: regular - Abdomen Abdomen: soft, non tender Bariatric Assessment & Plan Plan: Dysphagia. Patient's LAP-BAND was empty. 6.5 mL removed the band. She will follow-up in 4 weeks.0 Bariatric Checklist Checklist: Plan: Checklist: EGD: 1. Hiatal hernia: 2. H. Pylori: HgbA1c: Vitamin D: Smoking: Former smoker Primary care physician referral: maria elena yan ([place]) Psychiatry clearance: Cardiology clearance: Sleep study: Diet journal: VTE risk score: VTE risk level: Rehab needs at discharge:
== END ==
LOC: BARWHC3 13:48
PROVIDERS: ATTEND Surgery
DX: Z46.51 Encounter for fitting and adjustment of gastric lap band (principal); R13.10 Dysphagia, unspecified; I10 Essential (primary) hypertension; F41.9 Anxiety disorder, unspecified; Z87.891 Personal history of nicotine dependence
CPT/HCPCS: 99212

== ENCOUNTER → 2022-01-04 | Outpatient (CLI) | payer BC ==
[2022-01-04 13:38] VITALS: BP 108/69; PULSE 83; BMI 28.6
[2022-01-04 13:39] VITALS: TEMP 98.9
--- NOTE | 2022-01-04 14:43 | P.HPBAR ---
Bariatric H&P - History & Physicial H&P Date: 01/04/22 History & Physicial: Visit/CC: lap band Patient initial contact: Initial weight: 113.398 kg Initial weight in pounds: 250.00 Height: 5 ft 9 in Initial BMI: 36.9 Last weight: Current weight: 87.997 kg Current weight in pounds: 194.00 Current BMI: 28.6 [place] body weight (based on NIH guidelines): 65.771 kg Excess body weight loss: 53.3% The patient is a 46 year-old F who presents for Bariatric Assessment.patient presents today for LAP-BAND follow-up. She is gained 25 pounds the last visit. She is requesting a fill of her band. She's had no further GERD. Since her band was entered. Past Medical History Past Medical History: Hypertension, Thyroid Disorder Additional Past Medical History / Comment(s): CURRENT: UTI, BEING TREATED WITH ANTIBIOTICS.HAS BEEN OFF ANTIHYPERTENSIIVE MED SINCE WEIGHT LOSS POST LAB BAND OR. History of Any Multi-Drug Resistant Organisms: None Reported Past Surgical History: Back Surgery, Bariatric Surgery, Tubal Ligation, Uterine Ablation Additional Past Surgical History / Comment(s): Band placed 11/15/[address] Caldera; Laminectomy, UTERINE ABLATION, LYMPH NODE FROM NECK, 1-5-17 REVISION LAMINECTOMY/DECOMPRESSION/DISCETOMY L5-S1, spinal fusion Past Anesthesia/Blood Transfusion Reactions: Motion Sickness, Postoperative Nausea & Vomiting (PONV) Past Psychological History: Anxiety, No Psychological Hx Reported Smoking Status: Unknown if ever smoked Past Alcohol Use History: None Reported, Rare Additional Past Alcohol Use History / Comment(s): SMOKED FOR 19 YR, 1PPD. Past Drug Use History: None Reported - Past Family History Mother Family Medical History: Cancer, Hyperlipidemia, Hypertension Father Family Medical History: Thyroid Disorder Surgical - Exam Vital Signs Temp Pulse BP 98.9 F 83 108/69 01/04/22 13:35 01/04/22 13:35 01/04/22 13:35 - General well developed, well nourished, no distress - Eyes PERRL - ENT normal pinna, normal nares - Neck no masses - Respiratory normal expansion - Abdomen Abdomen: soft, non tender Bariatric Assessment & Plan Plan: patient's LAP-BAND was adjusted. She had 3 mL added to the band. She'll follow-up in 4 weeks. Bariatric Checklist Checklist: Plan: Checklist: EGD: 1. Hiatal hernia: 2. H. Pylori: HgbA1c: Vitamin D: Smoking: Former smoker Primary care physician referral: maria elena yan ([place]) Psychiatry clearance: Cardiology clearance: Sleep study: Diet journal: VTE risk score: VTE risk level: Rehab needs at discharge:
== END | disposition home or self-care (01) ==
LOC: BARWHC3 13:19
PROVIDERS: ATTEND Surgery
DX: E66.01 Morbid (severe) obesity due to excess calories (principal); Z68.28 Body mass index [BMI] 28.0-28.9, adult
CPT/HCPCS: 99212

== ENCOUNTER → 2022-02-08 | Outpatient (CLI) | payer BC ==
[2022-02-08 13:38] VITALS: BP 111/77; PULSE 88; RESP 12; TEMP 98.6; BMI 29.7
--- NOTE | 2022-02-08 15:14 | P.HPBAR ---
Bariatric H&P - History & Physicial H&P Date: 02/08/22 History & Physicial: Visit/CC: adjustment Patient initial contact: Initial weight: 113.398 kg Initial weight in pounds: 250.00 Height: 5 ft 9 in Initial BMI: 36.9 Last weight: Current weight: 91.172 kg Current weight in pounds: 201.00 Current BMI: 29.7 [place] body weight (based on NIH guidelines): 65.771 kg Excess body weight loss: 46.6% The patient is a 46 year-old F who presents for Bariatric Assessment. She is hungry and is requesting a fill of her band. Past Medical History Past Medical History: Hypertension, Thyroid Disorder Additional Past Medical History / Comment(s): CURRENT: UTI, BEING TREATED WITH ANTIBIOTICS.HAS BEEN OFF ANTIHYPERTENSIIVE MED SINCE WEIGHT LOSS POST LAB BAND OR. History of Any Multi-Drug Resistant Organisms: None Reported Past Surgical History: Back Surgery, Bariatric Surgery, Tubal Ligation, Uterine Ablation Additional Past Surgical History / Comment(s): Band placed 11/15/[address] Caldera; Laminectomy, UTERINE ABLATION, LYMPH NODE FROM NECK, 1--17 REVISION LAMINECTOMY/DECOMPRESSION/DISCETOMY L5-S1, spinal fusion Past Anesthesia/Blood Transfusion Reactions: Motion Sickness, Postoperative Nausea & Vomiting (PONV) Smoking Status: Unknown if ever smoked - Past Family History Mother Family Medical History: Cancer, Hyperlipidemia, Hypertension Father Family Medical History: Thyroid Disorder Surgical - Exam Vital Signs Temp Pulse Resp BP 98.6 F 88 12 111/77 02/08/22 13:33 02/08/22 13:33 02/08/22 13:33 02/08/22 13:33 - General well developed, well nourished, no distress - Eyes PERRL - ENT normal pinna - Neck no masses - Respiratory normal expansion - Cardiovascular Rhythm: regular - Abdomen Abdomen: soft, non tender Bariatric Assessment & Plan Plan: Patient's LAP-BAND was adjusted. She had 3 mL added to the band. She'll follow-up in 4 weeks. Bariatric Checklist Checklist: Plan: Checklist: EGD: 1. Hiatal hernia: 2. H. Pylori: HgbA1c: Vitamin D: Smoking: Former smoker Primary care physician referral: maria elena yan ([place]) Psychiatry clearance: Cardiology clearance: Sleep study: Diet journal: VTE risk score: VTE risk level: Rehab needs at discharge:
== END ==
LOC: BARWHC3 09:46
PROVIDERS: ATTEND Surgery
DX: Z98.84 Bariatric surgery status (principal)
CPT/HCPCS: 99212

== ENCOUNTER → 2022-02-09 | Outpatient (CLI) | payer BC ==
[2022-02-09 10:43] VITALS: BP 111/73; PULSE 80; RESP 16; TEMP 98.1
--- NOTE | 2022-02-09 10:54 | P.HPBAR ---
Bariatric H&P - History & Physicial H&P Date: 02/09/22 History & Physicial: Visit/CC: Remove some fluid out of Band Patient initial contact: Initial weight: 113.398 kg Initial weight in pounds: 250.00 Height: Initial BMI: Last weight: Current weight: 90.265 kg Current weight in pounds: 199.00 Current BMI: [place] body weight (based on NIH guidelines): Excess body weight loss: The patient is a 46 year-old F who presents for Bariatric Assessment. Patient's complaints of dysphagia. She had a adjustment of her LAP-BAND yesterday. She is unable tolerate liquids. Past Medical History Past Medical History: Hypertension, Thyroid Disorder Additional Past Medical History / Comment(s): CURRENT: UTI, BEING TREATED WITH ANTIBIOTICS.HAS BEEN OFF ANTIHYPERTENSIIVE MED SINCE WEIGHT LOSS POST LAB BAND OR. History of Any Multi-Drug Resistant Organisms: None Reported Past Surgical History: Back Surgery, Bariatric Surgery, Tubal Ligation, Uterine Ablation Additional Past Surgical History / Comment(s): Band placed 11/15/[address] Caldera; Laminectomy, UTERINE ABLATION, LYMPH NODE FROM NECK, 04-01-17 REVISION LAMINECTOMY/DECOMPRESSION/DISCETOMY L5-S1, spinal fusion Past Anesthesia/Blood Transfusion Reactions: Motion Sickness, Postoperative Nausea & Vomiting (PONV) Past Psychological History: Anxiety, No Psychological Hx Reported Smoking Status: Unknown if ever smoked Past Alcohol Use History: None Reported, Rare Additional Past Alcohol Use History / Comment(s): SMOKED FOR 19 YR, 1PPD. Past Drug Use History: None Reported - Past Family History Mother Family Medical History: Cancer, Hyperlipidemia, Hypertension Father Family Medical History: Thyroid Disorder Surgical - Exam Vital Signs Temp Pulse Resp BP 98.1 F 80 16 111/73 02/09/22 10:41 02/09/22 10:41 02/09/22 10:41 02/09/22 10:41 - General well developed, well nourished - Eyes PERRL - ENT normal pinna - Neck no masses - Respiratory normal expansion - Cardiovascular Rhythm: regular - Abdomen Abdomen: soft, non tender Bariatric Assessment & Plan Plan: Patient LAP-BAND was adjusted. She had 2 mL refer band. She has 4 mL in the band. She was able to water without difficulty. She'll follow-up in 2-4 weeks.. Bariatric Checklist Checklist: Plan: Checklist: EGD: 1. Hiatal hernia: 2. H. Pylori: HgbA1c: Vitamin D: Smoking: Former smoker Primary care physician referral: maria elena yan ([place]) Psychiatry clearance: Cardiology clearance: Sleep study: Diet journal: VTE risk score: VTE risk level: Rehab needs at discharge:
== END | disposition home or self-care (01) ==
LOC: BARWHC3 10:15
PROVIDERS: ATTEND Surgery
DX: Z09 Encounter for follow-up examination after completed treatment for conditions other than malignant neoplasm (principal); Z98.84 Bariatric surgery status; E66.01 Morbid (severe) obesity due to excess calories; Z87.891 Personal history of nicotine dependence; Z68.45 Body mass index [BMI] 70 or greater, adult
CPT/HCPCS: 99212

== ENCOUNTER → 2022-03-08 | Outpatient (CLI) | payer BC ==
[2022-03-08 14:28] VITALS: BP 115/79; PULSE 84; TEMP 97.9; BMI 30.2
--- NOTE | 2022-03-08 14:43 | P.HPBAR ---
Bariatric H&P - History & Physicial H&P Date: 03/08/22 History & Physicial: Visit/CC: lap band Patient initial contact: Initial weight: 113.398 kg Initial weight in pounds: 250.00 Height: 5 ft 9 in Initial BMI: 36.9 Last weight: Current weight: 92.714 kg Current weight in pounds: 204.40 Current BMI: 30.2 [place] body weight (based on NIH guidelines): 65.771 kg Excess body weight loss: 43.4% The patient is a 46 year-old F who presents for Bariatric Assessment. Patient presents today for Joshi follow-up. She requesting a fill of her band. She states she feels hungry. Past Medical History Past Medical History: Hypertension, Thyroid Disorder Additional Past Medical History / Comment(s): CURRENT: UTI, BEING TREATED WITH ANTIBIOTICS.HAS BEEN OFF ANTIHYPERTENSIIVE MED SINCE WEIGHT LOSS POST LAB BAND OR. History of Any Multi-Drug Resistant Organisms: None Reported Past Surgical History: Back Surgery, Bariatric Surgery, Tubal Ligation, Uterine Ablation Additional Past Surgical History / Comment(s): Band placed 11/15/[address] Caldera; Laminectomy, UTERINE ABLATION, LYMPH NODE FROM NECK, 1--17 REVISION LAMINECTOMY/DECOMPRESSION/DISCETOMY L5-S1, spinal fusion Past Anesthesia/Blood Transfusion Reactions: Motion Sickness, Postoperative Nausea & Vomiting (PONV) Past Psychological History: Anxiety, No Psychological Hx Reported Smoking Status: Unknown if ever smoked Past Alcohol Use History: None Reported, Rare Additional Past Alcohol Use History / Comment(s): SMOKED FOR 19 YR, 1PPD. Past Drug Use History: None Reported - Past Family History Mother Family Medical History: Cancer, Hyperlipidemia, Hypertension Father Family Medical History: Thyroid Disorder Surgical - Exam Vital Signs Temp Pulse BP 97.9 F 84 115/79 03/08/22 14:23 03/08/22 14:23 03/08/22 14:23 - General well developed, well nourished, no distress - Eyes PERRL - ENT normal pinna - Neck no masses - Respiratory normal expansion - Cardiovascular Rhythm: regular - Abdomen Abdomen: soft, non tender Bariatric Assessment & Plan Plan: Patient's LAP-BAND was adjusted. She had 0.7 mL added to the band. She will follow-up in 4 weeks. Bariatric Checklist Checklist: Plan: Checklist: EGD: 1. Hiatal hernia: 2. H. Pylori: HgbA1c: Vitamin D: Smoking: Former smoker Primary care physician referral: amria elena yan ([place]) Psychiatry clearance: Cardiology clearance: Sleep study: Diet journal: VTE risk score: VTE risk level: Rehab needs at discharge:
== END ==
LOC: BARWHC3 13:58
PROVIDERS: ATTEND Surgery
DX: Z48.815 Encounter for surgical aftercare following surgery on the digestive system (principal); Z98.84 Bariatric surgery status; E66.01 Morbid (severe) obesity due to excess calories; Z68.30 Body mass index [BMI] 30.0-30.9, adult; Z87.891 Personal history of nicotine dependence
CPT/HCPCS: 99212

== ENCOUNTER → 2022-04-12 | Outpatient (CLI) | payer BC ==
[2022-04-12 13:54] VITALS: BP 120/81; PULSE 99; TEMP 99; BMI 30.7
--- NOTE | 2022-04-26 15:44 | P.HPBAR ---
Bariatric H&P - History & Physicial H&P Date: 04/12/22 History & Physicial: Visit/CC: lap band Patient initial contact: Initial weight: 113.398 kg Initial weight in pounds: 250.00 Height: 5 ft 9 in Initial BMI: 36.9 Last weight: Current weight: 94.347 kg Current weight in pounds: 208.00 Current BMI: 30.7 [place] body weight (based on NIH guidelines): 65.771 kg Excess body weight loss: 40.0% The patient is a 46 year-old F who presents for Bariatric Assessment. Patient resents today for LAP-BAND follow-up. She's requesting a fill of her band. She is currently hungry. Past Medical History Past Medical History: Hypertension, Thyroid Disorder Additional Past Medical History / Comment(s): CURRENT: UTI, BEING TREATED WITH ANTIBIOTICS.HAS BEEN OFF ANTIHYPERTENSIIVE MED SINCE WEIGHT LOSS POST LAB BAND OR. History of Any Multi-Drug Resistant Organisms: None Reported Past Surgical History: Back Surgery, Bariatric Surgery, Tubal Ligation, Uterine Ablation Additional Past Surgical History / Comment(s): Band placed 11/15/[address] Caldera; Laminectomy, UTERINE ABLATION, LYMPH NODE FROM NECK, 1--17 REVISION LAMINECTOMY/DECOMPRESSION/DISCETOMY L5-S1, spinal fusion Past Anesthesia/Blood Transfusion Reactions: Motion Sickness, Postoperative Nausea & Vomiting (PONV) Smoking Status: Unknown if ever smoked - Past Family History Mother Family Medical History: Cancer, Hyperlipidemia, Hypertension Father Family Medical History: Thyroid Disorder Surgical - Exam Vital Signs Temp Pulse BP 99 F 99 120/81 04/12/22 13:50 04/12/22 13:50 04/12/22 13:50 - General well developed, well nourished, no distress - Eyes PERRL - ENT normal pinna - Neck no masses - Respiratory normal expansion - Cardiovascular Rhythm: regular - Abdomen Abdomen: soft, non tender Bariatric Assessment & Plan Plan: Morbid obesity. Patient's LAP-BAND was adjusted. She'll 0.5 mL added to the band. She presents 5.2 mL in the band. She'll follow-up in 4 weeks. Bariatric Checklist Checklist: Plan: Checklist: EGD: 1. Hiatal hernia: 2. H. Pylori: HgbA1c: Vitamin D: Smoking: Former smoker Primary care physician referral: maria elena yan ([place]) Psychiatry clearance: Cardiology clearance: Sleep study: Diet journal: VTE risk score: VTE risk level: Rehab needs at discharge:
== END | disposition home or self-care (01) ==
LOC: BARWHC3 13:07
PROVIDERS: ATTEND Surgery
DX: E66.01 Morbid (severe) obesity due to excess calories (principal); Z46.51 Encounter for fitting and adjustment of gastric lap band; Z68.30 Body mass index [BMI] 30.0-30.9, adult; I10 Essential (primary) hypertension; E07.9 Disorder of thyroid, unspecified; N39.0 Urinary tract infection, site not specified; Z98.84 Bariatric surgery status; Z87.891 Personal history of nicotine dependence
CPT/HCPCS: 99212

== ENCOUNTER → 2022-05-17 | Outpatient (CLI) | payer BC ==
[2022-05-17 15:08] VITALS: BMI 30.1
--- NOTE | 2022-06-07 12:16 | P.HPBAR ---
Bariatric H&P - History & Physicial H&P Date: 05/17/22 History & Physicial: Visit/CC: lap band follow up Patient initial contact: Initial weight: 113.398 kg Initial weight in pounds: 250.00 Height: 5 ft 9 in Initial BMI: 36.9 Last weight: Current weight: 92.533 kg Current weight in pounds: 204.00 Current BMI: 30.1 [place] body weight (based on NIH guidelines): 65.771 kg Excess body weight loss: 43.8% The patient is a 46 year-old F who presents for Bariatric Assessment. Patient resents today for LAP-BAND follow-up. Patient's had chronic issues with dysphagia and GERD once her band is tightened. She wishes to convert to sleeve gastrectomy. The patient's had the LAP-BAND device for many years. She has chronic issues with dysphagia and GERD once her band is appropriately tightened. The patient cannot tolerate her band being significantly adjusted. Past Medical History Past Medical History: Hypertension, Thyroid Disorder Additional Past Medical History / Comment(s): CURRENT: UTI, BEING TREATED WITH ANTIBIOTICS.HAS BEEN OFF ANTIHYPERTENSIIVE MED SINCE WEIGHT LOSS POST LAB BAND OR. History of Any Multi-Drug Resistant Organisms: None Reported Past Surgical History: Back Surgery, Bariatric Surgery, Tubal Ligation, Uterine Ablation Additional Past Surgical History / Comment(s): Band placed 11/15/[address] Caldera; Laminectomy, UTERINE ABLATION, LYMPH NODE FROM NECK, 1-5-17 REVISION LAMINECTOMY/DECOMPRESSION/DISCETOMY L5-S1, spinal fusion Past Anesthesia/Blood Transfusion Reactions: Motion Sickness, Postoperative Nausea & Vomiting (PONV) Smoking Status: Unknown if ever smoked - Past Family History Mother Family Medical History: Cancer, Hyperlipidemia, Hypertension Father Family Medical History: Thyroid Disorder Surgical - Exam - General well developed, well nourished, no distress - Eyes PERRL - ENT normal pinna, normal nares - Neck no masses - Respiratory normal expansion - Cardiovascular Rhythm: regular - Abdomen Abdomen: soft, non tender Bariatric Assessment & Plan Plan: The patient will not be adjusted. The patient's had chronic issues with GERD and dysphagia. Patient will attempt to obtain insurance authorization for removal of LAP-BAND conversion sleeve gastrectomy due to chronic issues with GERD and dysphagia. Bariatric Checklist Checklist: Plan: Checklist: EGD: 1. Hiatal hernia: 2. H. Pylori: HgbA1c: Vitamin D: Smoking: Former smoker Primary care physician referral: maria elena yan ([place]) Psychiatry clearance: Cardiology clearance: Sleep study: Diet journal: VTE risk score: VTE risk level: Rehab needs at discharge:
== END ==
LOC: BARWHC3 12:59
PROVIDERS: ATTEND Surgery
DX: E66.01 Morbid (severe) obesity due to excess calories (principal); I10 Essential (primary) hypertension; K21.9 Gastro-esophageal reflux disease without esophagitis; E07.9 Disorder of thyroid, unspecified; Z68.30 Body mass index [BMI] 30.0-30.9, adult; Z87.891 Personal history of nicotine dependence; Z46.51 Encounter for fitting and adjustment of gastric lap band
CPT/HCPCS: 99211

== ENCOUNTER → 2022-06-28 | Outpatient (CLI) | payer BC ==
[2022-06-28 15:30] LABS: Basophils # (A) 0.04 X 10*3/uL (0.00-0.10); Basophils % (A) 0.5 %; Eosinophils # (A) 0.19 X 10*3/uL (0.04-0.35); Eosinophils % (A) 2.6 %; HCT 42.4 % (37.2-46.3); HGB 13.8 g/dL (12.0-15.0); Immature Grans, Automated 0.1 %; Lymphocytes # (A) 2.06 X 10*3/uL (0.90-5.00); Lymphocytes % (A) 28.3 %; MCH 30.7 pg (27.0-32.0); MCHC 32.5 g/dL (32.0-37.0); MCV 94.4 fL (80.0-97.0); Mean Platelet Volume 11.1 fL (9.5-12.2); Monocytes # (A) 0.44 X 10*3/uL (0.20-1.00); NRBC Per 100 WBC 0 /100 WBCS (0.0-0.0); Neutrophils # (A) 4.55 X 10*3/uL (1.80-7.70); Neutrophils % (A) 62.5 %; Platelet Count 227 X 10*3/uL (140-440); RBC 4.49 X 10*6/uL (4.10-5.20); RDW 12.7 % (11.5-14.5); WBC 7.29 X 10*3/uL (4.50-10.00)
[2022-06-28 16:55] LABS: African American GFR (CKD) 103.2 (60.0-200.0); Albumin 4.3 g/dL (3.8-4.9); Albumin/Globulin Ratio 1.59 (1.60-3.17); Anion Gap 9.8 mmol/L (10.00-18.00); BUN/Creat Ratio 10.75 Ratio (12.00-20.00); Blood Urea Nitrogen 8.6 mg/dL (9.0-27.0); Calcium 9.7 mg/dL (8.7-10.3); Carbon Dioxide 27.2 mmol/L (20.0-27.5); Globulin 2.7 g/dL (1.6-3.3); Potassium 4.7 mmol/L (3.5-5.5); Total Bilirubin 0.2 mg/dL (0.30-1.20)
== END | disposition home or self-care (01) ==
LOC: LABWHC1 10:35
PROVIDERS: ATTEND Surgery
DX: E66.01 Morbid (severe) obesity due to excess calories (principal); E55.9 Vitamin D deficiency, unspecified; R94.31 Abnormal electrocardiogram [ECG] [EKG]
CPT/HCPCS: 36415; 80053; 82306; 82607; 82746; 83036; 84425; 85025; 93005

== ENCOUNTER → 2022-06-28 | Outpatient (CLI) | payer BC ==
[2022-06-28 10:47] VITALS: BMI 31.0
== END ==
LOC: BARWHC3 08:48
PROVIDERS: ATTEND Surgery
DX: E66.01 Morbid (severe) obesity due to excess calories (principal); Z68.31 Body mass index [BMI] 31.0-31.9, adult; Z87.891 Personal history of nicotine dependence; Z71.3 Dietary counseling and surveillance
CPT/HCPCS: 97804

== ENCOUNTER 2022-07-05 09:57 | Day surgery (SDC) | payer BC ==
[2022-06-30 15:18] VITALS: BMI 31.0
[~2022-07-05 09:57] MED LIST changes: -DEXAMETHASONE SOD PHOSPHATE 10 MG/ML 1 ML VIAL IV ONE; -HYDROmorphone 1 MG/ML 1 ML SYRINGE IVP PRN; +LIDOCAINE 1% (10MG/ML) FOR IV START INTRADERMA PRN; -MIDAZOLAM 2 MG/2 ML VIAL IV PRN; -ONDANSETRON 4 MG/2 ML VIAL IVP ONE
[2022-07-05 10:30] VITALS: TEMP 97
[2022-07-05] MEDS ORDERED: PROPOFOL 10 MG/ML 20 ML VIAL IV ONE (11:03)
[2022-07-05] MEDS ORDERED: LIDOCAINE 2% INJ 20 MG/ML (2 ML VIAL) ONE (11:03)
--- NOTE | 2022-07-05 11:14 | P.GSHP ---
History of Present Illness H&P Date: 07/05/22 Chief Complaint: GERD, Dysphagia This a 46-year-old female been safe for EGD. She's admissions GERD and dysphagia. Suturing conversion to sleeve gastrectomy. Past Medical History Past Medical History: Hypertension, Thyroid Disorder Additional Past Medical History / Comment(s): RLS History of Any Multi-Drug Resistant Organisms: None Reported Past Surgical History: Back Surgery, Bariatric Surgery, Hysterectomy, Tubal Ligation, Uterine Ablation Additional Past Surgical History / Comment(s): Band placed 11/15/[address] Caldera; Laminectomy, UTERINE ABLATION, LYMPH NODE FROM NECK, 04-01-16 REVISION LAMINECTOMY/DECOMPRESSION/DISCETOMY L5-S1, spinal fusion, COLONOSCOPY Past Anesthesia/Blood Transfusion Reactions: Motion Sickness, Postoperative Nausea & Vomiting (PONV) Smoking Status: Former smoker, Vaper - Past Family History Mother Family Medical History: Cancer, Hyperlipidemia, Hypertension Father Family Medical History: Thyroid Disorder Medications and Allergies Home Medications Medication Instructions Recorded Confirmed Type Levothyroxine Sodium [Synthroid] 150 mcg PO DAILY 03/29/16 06/30/22 History clonazePAM [KlonoPIN] 1 mg PO DAILY 09/20/16 06/30/22 History ARIPiprazole [Abilify] 15 mg PO DAILY 06/30/22 06/30/22 History Ascorbic Acid [Vitamin C] 1,000 mg PO DAILY 06/30/22 06/30/22 History Biotin [Ekrm-Xjrt-Mojxz] 10,000 mcg PO DAILY 06/30/22 06/30/22 History Cholecalciferol [Vitamin D3 (25 25 mcg PO DAILY 06/30/22 06/30/22 History Mcg = 1000 Iu)] DULoxetine HCL [Cymbalta] 60 mg PO DAILY 06/30/22 06/30/22 History Ferrous Sulfate [Feosol] 325 mg PO Q2D 06/30/22 06/30/22 History Multivitamin/Iron/Folic Acid 1 each PO DAILY 06/30/22 06/30/22 History [Centrum Women Tablet] Pramipexole [Mirapex] 0.5 mg PO HS 06/30/22 06/30/22 History Pregabalin [Lyrica] 75 mg PO BID 06/30/22 06/30/22 History Propranolol [Inderal] 20 mg PO DAILY 06/30/22 06/30/22 History Semaglutide [Wegovy] 0.25 mg SQ TU 06/30/22 06/30/22 History traZODone HCL 100 mg PO HS 06/30/22 06/30/22 History Allergies Allergy/AdvReac Type Severity Reaction Status Date / Time No Known Allergies Allergy Verified 06/30/22 15:03 Surgical - Exam Vital Signs Temp Pulse Resp BP Pulse Ox 97.0 F L 73 20 105/63 100 07/05/22 10:25 07/05/22 10:25 07/05/22 10:25 07/05/22 10:25 07/05/22 10:25 - General well developed, well nourished - Eyes PERRL - ENT normal pinna - Neck no masses - Respiratory normal expansion - Cardiovascular Rhythm: regular - Abdomen Abdomen: soft, non tender Assessment and Plan Assessment: GERD, dysphagia. We'll perform EGD.
--- NOTE | 2022-07-05 11:22 | P.OP ---
Date of Procedure: 07/05/22 Preoperative Diagnosis: GERD Postoperative Diagnosis: Antral gastritis Dilated proximal gastric pouch Procedure(s) Performed: EGD Anesthesia: MAC Surgeon: Deshaun Caldera Pathology: other (Antrum) Condition: stable Disposition: PACU Description of Procedure: The patient's placed on the endoscopy table in the lateral position. She received IV sedation. The gastroscope placed oropharynx passed in the esophagus of the stomach. Scope was placed through the pylorus. The first and second portion of the duodenum appears normal. Scope summer back the bladder inflamed. A biopsies performed. Scope was she'll flexed and remainder the stomach appeared normal. The patient a previous LAP-BAND device. The proximal gastric pouch. Dilated. There is no evidence of inflammation or erosion of LAP-BAND device. The GE junction was at 47 is. The distal esophagus appeared mildly inflamed. The proximal esophagus appeared normal. Scope withdrawn for patient.
[2022-07-05 11:29] VITALS: RESP 16
[2022-07-05 11:42] VITALS: BP 100/68; PULSE 68
== END 2022-07-05 11:54 | disposition home or self-care (01) ==
LOC: ORWHC2ENDO 09:57
PROVIDERS: ATTEND Surgery
DX: K29.50 Unspecified chronic gastritis without bleeding (principal); K21.9 Gastro-esophageal reflux disease without esophagitis; I10 Essential (primary) hypertension; E07.9 Disorder of thyroid, unspecified; G25.81 Restless legs syndrome; Z98.1 Arthrodesis status; Z98.890 Other specified postprocedural states; Z87.891 Personal history of nicotine dependence; Z82.49 Family history of ischemic heart disease and other diseases of the circulatory system; Z83.49 Family history of other endocrine, nutritional and metabolic diseases; Z79.899 Other long term (current) drug therapy
CPT/HCPCS: 43239; J2704; J2001; 88305

== ENCOUNTER → 2022-07-19 | Outpatient (CLI) | payer BC ==
[2022-07-19 14:10] VITALS: BP 110/73; PULSE 86; TEMP 98.5; BMI 30.8
--- NOTE | 2022-08-31 10:05 | P.HPBAR ---
Bariatric H&P - History & Physicial H&P Date: 07/19/22 History & Physicial: Visit/CC: pre-surg Patient initial contact: Initial weight: 113.398 kg Initial weight in pounds: 250.00 Height: 5 ft 9 in Initial BMI: 36.9 Last weight: Current weight: 94.801 kg Current weight in pounds: 209.00 Current BMI: 30.8 [place] body weight (based on NIH guidelines): 65.771 kg Excess body weight loss: 39.0% The patient is a 47 year-old F who presents for Bariatric Assessment. Patient presents today for bariatric consultation. Her BMI 31. She's had some minimal GERD. Past Medical History Past Medical History: Hypertension, Thyroid Disorder Additional Past Medical History / Comment(s): CURRENT: UTI, BEING TREATED WITH ANTIBIOTICS.HAS BEEN OFF ANTIHYPERTENSIIVE MED SINCE WEIGHT LOSS POST LAB BAND OR. History of Any Multi-Drug Resistant Organisms: None Reported Past Surgical History: Back Surgery, Bariatric Surgery, Tubal Ligation, Uterine Ablation Additional Past Surgical History / Comment(s): Band placed 11/15/[address] Caldera; Laminectomy, UTERINE ABLATION, LYMPH NODE FROM NECK, 04-01-17 REVISION LAMINECTOMY/DECOMPRESSION/DISCETOMY L5-S1, spinal fusion Past Anesthesia/Blood Transfusion Reactions: Motion Sickness, Postoperative Nausea & Vomiting (PONV) Past Psychological History: Anxiety, No Psychological Hx Reported Smoking Status: Unknown if ever smoked Past Alcohol Use History: None Reported, Rare Additional Past Alcohol Use History / Comment(s): SMOKED FOR 19 YR, 1PPD. Past Drug Use History: None Reported - Past Family History Mother Family Medical History: Cancer, Hyperlipidemia, Hypertension Father Family Medical History: Thyroid Disorder Surgical - Exam Vital Signs Temp Pulse BP 98.5 F 86 110/73 07/19/22 13:10 07/19/22 13:10 07/19/22 13:10 - General well developed, well nourished, no distress - Eyes PERRL - ENT normal pinna - Neck no masses - Respiratory normal expansion - Cardiovascular Rhythm: regular - Abdomen Abdomen: soft, non tender Bariatric Assessment & Plan Plan: Resolving morbid obesity. Patient's GERD is minimal old be observed. Bariatric Checklist Checklist: Plan: Checklist: EGD: 1. Hiatal hernia: 2. H. Pylori: HgbA1c: Vitamin D: Smoking: Former smoker Primary care physician referral: maria elena yan ([place]) Psychiatry clearance: Cardiology clearance: Sleep study: Diet journal: VTE risk score: VTE risk level: Rehab needs at discharge:
== END ==
LOC: BARWHC3 12:42
PROVIDERS: ATTEND Surgery
DX: E66.01 Morbid (severe) obesity due to excess calories (principal); I10 Essential (primary) hypertension; Z68.30 Body mass index [BMI] 30.0-30.9, adult; K21.9 Gastro-esophageal reflux disease without esophagitis; Z87.891 Personal history of nicotine dependence; Z98.84 Bariatric surgery status
CPT/HCPCS: 99211

== ENCOUNTER 2022-08-02 06:14 | Observation (INO) | payer BC ==
[~2022-08-02 06:14] MED LIST changes: +ENOXAPARIN 40 MG/0.4 ML SYRINGE SQ PRN; -LACTATED RINGERS 1,000 ML IV SCH; -LIDOCAINE 1% (10MG/ML) FOR IV START INTRADERMA PRN
[2022-08-02] MEDS ORDERED: DEXAMETHASONE SOD PHOSPHATE 4 MG/ML 1 ML VIAL IV ONE (06:38)
[2022-08-02] MEDS ORDERED: HYDROmorphone 0.5 MG/0.5 ML SYRINGE IVP PRN ×2 (06:38→10:01)
[2022-08-02] MEDS ORDERED: ONDANSETRON 4 MG/2 ML VIAL IVP ONE (06:38)
[2022-08-02] MEDS ORDERED: SCOPOLAMINE 1 MG/72 HR PATCH TRANSDERM ONE (07:13)
[2022-08-02] MEDS: LACTATED RINGERS 1,000 ML IV SCH (07:13)
[2022-08-02] MEDS ORDERED: MIDAZOLAM 2 MG/2 ML VIAL IVP ONE (07:13)
[2022-08-02] MEDS ORDERED: SUCCINYLCHOLINE CHLORIDE 200 MG/10 ML VIAL IV ONE (07:43)
[2022-08-02] MEDS ORDERED: fentaNYL (PF) 50 MCG/ML 2 ML AMP ONE (07:43)
[2022-08-02] MEDS ORDERED: KETOROLAC 15 MG/ML 1 ML VIAL ONE (07:43)
[2022-08-02] MEDS ORDERED: LIDOCAINE 2% INJ 20 MG/ML (2 ML VIAL) ONE (07:43)
[2022-08-02] MEDS ORDERED: NEOSTIGMINE 1 MG/ML 10 ML VIAL ONE (07:43)
[2022-08-02] MEDS ORDERED: PROPOFOL 10 MG/ML 20 ML VIAL IV ONE (07:43)
[2022-08-02] MEDS ORDERED: GLYCOPYRROLATE 0.2 MG/ML 2 ML VIAL ONE (07:43)
[2022-08-02] MEDS ORDERED: KETAMINE 10 MG/ML 20 ML VIAL ONE (07:43)
[2022-08-02] MEDS ORDERED: MIDAZOLAM 2 MG/2 ML VIAL ONE (07:43)
[2022-08-02] MEDS ORDERED: ROCURONIUM 10 MG/ML (5 ML VIAL) IV ONE (07:43)
--- NOTE | 2022-08-02 07:52 | P.GSHP ---
History of Present Illness H&P Date: 08/02/22 Chief Complaint: Dysphagia related Is a 46-year-old female who's had a LAP-BAND system for many years. Patient's had issues with chronic dysphagia related to her LAP-BAND. Patient presents today for removal of LAP-BAND conversion sleeve gastrectomy. Patient's aware the risks of surgery including gastric injury, leak, perforation and scarring Past Medical History Past Medical History: Hypertension, Thyroid Disorder Additional Past Medical History / Comment(s): "Irregular heartbeat, beats fast, at times". Hypothyroid. History of Any Multi-Drug Resistant Organisms: None Reported Past Surgical History: Back Surgery, Bariatric Surgery, Hysterectomy, Tubal Ligation, Uterine Ablation Additional Past Surgical History / Comment(s): Band placed 11/15/2011, laminectomy, LYMPH NODE FROM NECK, REVISION OF LAMINECTOMY/DECOMPRESSION/DISCETOMY L5-S1, spinal fusion. Past Anesthesia/Blood Transfusion Reactions: Motion Sickness, Postoperative Nausea & Vomiting (PONV) Past Psychological History: Anxiety, Depression Smoking Status: Former smoker, Unknown if ever smoked Past Alcohol Use History: Rare Additional Past Alcohol Use History / Comment(s): SMOKED FOR 19 YRS, 1PPD, QUIT 8 MONTHS AGO. Past Drug Use History: None Reported - Past Family History Mother Family Medical History: Cancer, Hyperlipidemia, Hypertension Father Family Medical History: Thyroid Disorder Medications and Allergies Home Medications Medication Instructions Recorded Confirmed Type ARIPiprazole [Abilify] 15 mg PO QAM 06/30/22 07/27/22 History Ascorbic Acid [Vitamin C] 1,000 mg PO DAILY 06/30/22 07/27/22 History Biotin [Qadc-Jggm-Nnhxh] 10,000 mcg PO DAILY 06/30/22 07/27/22 History Cholecalciferol [Vitamin D3 (25 25 mcg PO DAILY 06/30/22 07/27/22 History Mcg = 1000 Iu)] DULoxetine HCL [Cymbalta] 60 mg PO QAM 06/30/22 07/27/22 History Ferrous Sulfate [Feosol] 325 mg PO Q2D 06/30/22 07/27/22 History Multivitamin/Iron/Folic Acid 1 each PO DAILY 06/30/22 07/27/22 History [Centrum Women Tablet] Pramipexole [Mirapex] 0.5 mg PO HS 06/30/22 07/27/22 History Pregabalin [Lyrica] 75 mg PO BID 06/30/22 07/27/22 History Propranolol [Inderal] 20 mg PO BID 06/30/22 07/27/22 History Semaglutide [Wegovy] 0.25 mg SQ TU 06/30/22 07/27/22 History traZODone HCL 100 mg PO HS 06/30/22 07/27/22 History Levothyroxine Sodium 150 mcg PO QAM 07/27/22 07/27/22 History clonazePAM [KlonoPIN] 1 mg PO HS 07/27/22 07/27/22 History Allergies Allergy/AdvReac Type Severity Reaction Status Date / Time No Known Allergies Allergy Verified 08/02/22 06:43 Surgical - Exam Vital Signs Temp Pulse Resp BP Pulse Ox 98.4 F 80 16 104/71 99 08/02/22 06:54 08/02/22 06:54 08/02/22 06:54 08/02/22 06:54 08/02/22 06:54 - General well developed, well nourished, no distress - Eyes PERRL - ENT normal pinna - Neck no masses - Respiratory normal expansion - Cardiovascular Rhythm: regular - Abdomen Abdomen: soft, non tender Assessment and Plan Assessment: Dysphagia with LAP-BAND. Patient undergo removal of LAP-BAND conversion to sleeve gastrectomy.
[2022-08-02] MEDS ORDERED: BUPIVACAINE (PF) 0.25% 30 ML VIAL SQ ONE (08:17)
[2022-08-02] MEDS ORDERED: METHYLENE BLUE 50 MG/10 ML AMPUL MISCELLANE ONE (08:21)
--- NOTE | 2022-08-02 09:59 | P.OP ---
Date of Procedure: 08/02/22 Preoperative Diagnosis: Dysphagia Postoperative Diagnosis: Dysphagia Procedure(s) Performed: Removal LAP-BAND system Laparoscopic gastric sleeve Anesthesia: FREDERIC Surgeon: Deshaun Caldera Estimated Blood Loss (ml): 25 Pathology: other (Stomach) Condition: stable Disposition: PACU Description of Procedure: The patient was placed on the operating room table in the supine position. She received general anesthesia and then was placed in dorsal lithotomy position. Her abdomen was prepped and draped in sterile fashion. The skin incision sites were anesthetized 1% local Xylocaine. The skin was incised the LAP-BAND port. Then using left cautery and blunt sharp dissection with the LAP-BAND port was dissected free and sent to pathology. Next using a 5 mm optical trocar under direct visualization the peritoneal cavity was entered. The peritoneal cavity was insufflated. And then after adequate insufflation the laparoscope placed in the peritoneal cavity. Next a 5 mm trochars placed in the right epigastric position and then a another 5 mm trochars placed in the right lateral position, another 5 mm trochars placed left lateral position. And then a 15 mm trochars placed in the supraumbilical position. The left lateral lobe of the liver was retracted. The LAP-BAND device was then seen. The adhesions Leelee device were lysed with sharp dissection. The anterior gastric wall plication was taken down with sharp dissection. The LAP-BAND was then cut and withdrawn from around stomach. It was extracted through the 15 mm trocar site. The stomach was visualized. The greater curvature of the stomach was then dissected using the Harmonic scissors. The dissection occurred approximately 5 cm from the pylorus to the level of the left heriberto. There was no hiatal hernia seen. At this point a 40-Italian bougie dilator was placed the oropharynx and passed into the esophagus and into the stomach by the KNIFE SHARPENER. The sleeve gastrectomy was performed by using the powered echelon stapler with a seam guard buttress material. Sequential firings of the stapler were performed. The gastric remnant was then brought out through the 15 mm trocar site. The dilator was withdrawn. And a orogastric tube was replaced into the stomach. The stomach was insufflated with 200 mL of methylene blue normal saline. There was no evidence of extravasation. The abdomen was irrigated there is no bleeding seen. The Neel-Alberto device was used to close the 15 mm trocar with 0 Vicryl. Skin was closed with interrupted 3-0 Monocryl sutures once the trochars withdrawn. Dermabond dressing was applied. Patient was sent to recovery in stable condition.
[2022-08-02] MEDS ORDERED: SIMETHICONE 40 MG/0.6 ML DROPS 2,000 MG/30 ML BOTTLE PO PRN (10:01)
[2022-08-02] MEDS ORDERED: diphenhydrAMINE 50 MG/ML 1 ML VIAL IVP PRN (10:01)
[2022-08-02] MEDS ORDERED: NALOXONE 0.4 MG/ML 1 ML VIAL IV PRN (10:01)
[2022-08-02] MEDS ORDERED: HYDROcodone/APAP 15 ML SOLUTION PO PRN (10:01)
[2022-08-02] MEDS ORDERED: HYOSCYAMINE ORAL DROPS 1.875 MG/15 ML BOTTLE PO PRN (10:01)
[2022-08-02] MEDS: 0.9% NACL WITH KCL 20 MEQ/L 1,000 ML IV SCH ×2 (10:48→17:23)
[2022-08-02] MEDS: KETOROLAC 15 MG/ML 1 ML VIAL IVP SCH ×2 (11:07→17:19)
[2022-08-02] MEDS: DEXAMETHASONE SOD PHOSPHATE 4 MG/ML 1 ML VIAL IVP SCH ×3 (11:14→20:43)
[2022-08-02] MEDS: ALBUTEROL NEBULIZED 2.5 MG/3 ML INHALATION SCH ×3 (11:30→20:02)
[2022-08-02] MEDS: HYDROmorphone 1 MG/ML 1 ML SYRINGE IVP PRN ×2 (11:53→15:30)
[2022-08-02] MEDS ORDERED: DEXTROSE 50% SYRINGE 50 ML IVP PRN ×2 (15:01)
[2022-08-02 16:41] LABS: Glucose,Whole Blood 104 mg/dL (70-110)
[2022-08-02] MEDS: INSULIN ASPART (NovoLOG) 100 UNIT/ML VIAL SQ SCH (16:51)
[2022-08-02] MEDS: ENOXAPARIN 40 MG/0.4 ML SYRINGE SQ SCH (20:43)
[2022-08-02] MEDS: PREGABALIN 75 MG CAP PO SCH (20:44)
[2022-08-02] MEDS: PROPRANOLOL 20 MG TAB PO SCH (20:45)
[2022-08-02 20:56] LABS: Glucose,Whole Blood 92 mg/dL (70-110)
[2022-08-02] MEDS ORDERED: traZODone HCL 100 MG TAB PO SCH (21:00)
[2022-08-02] MEDS ORDERED: PRAMIPEXOLE 0.5 MG TAB PO SCH (21:00)
[2022-08-02] MEDS ORDERED: clonazePAM 1 MG TAB PO SCH (21:00)
[2022-08-03] MEDS: INSULIN ASPART (NovoLOG) 100 UNIT/ML VIAL SQ SCH ×3 (00:40→12:06)
[2022-08-03] MEDS: 0.9% NACL WITH KCL 20 MEQ/L 1,000 ML IV SCH ×2 (00:52→06:16)
[2022-08-03] MEDS: KETOROLAC 15 MG/ML 1 ML VIAL IVP SCH ×3 (00:53→12:13)
[2022-08-03] MEDS: DEXAMETHASONE SOD PHOSPHATE 4 MG/ML 1 ML VIAL IVP SCH ×4 (00:53→12:14)
--- NOTE | 2022-08-03 05:16 | CONS ---
CONSULTATION REASON FOR CONSULTATION: Advice regarding anxiety and other multiple medical issues requested by Dr. Caldera. HISTORY OF PRESENT ILLNESS: This is a 46-year-old woman with a past medical history of multiple medical problems, underwent laparoscopic gastric sleeve and removal of lap band by Dr. Caldera. The patient is complaining of some chest pain postoperatively and also complains of some anxiety. There is no history of any fever, rigors, or chills. PAST MEDICAL HISTORY: Reviewed, include hypertension, history of back surgery, anxiety, depression. Rest of the chart and rest of the history is also reviewed. HOME MEDICATIONS: Reviewed, include Klonopin. Doses and rest of medications reviewed. ALLERGIES: None. FAMILY HISTORY: History of kidney cancer in the family. SOCIAL HISTORY: Previous history of smoking. REVIEW OF SYSTEMS: A 14-point review is negative except as mentioned earlier. PHYSICAL EXAMINATION: VITAL SIGNS: Pulse is 83, blood pressure 120/80, respiration 18. HEENT: Conjunctivae normal. NECK: No JVD. CARDIOVASCULAR: S1, S2 muffled. RESPIRATIONS: Breath sounds diminished in the bases. No rhonchi. No crackles. ABDOMEN: Soft, status post surgery. LEGS: No edema. NERVOUS SYSTEM: Nonfocal. LABORATORY DATA: Not available. ASSESSMENT: 1. Status post removal of lap band system and laparoscopic gastric sleeve surgery. 2. Anxiety, depression. 3. Hypertension. 4. Hypothyroidism. 5. History of bariatric surgery. 6. Multiple medical issues. RECOMMENDATIONS AND DISCUSSION: This is a 46-year-old woman who presented with multiple complex medical issues, we will monitor the patient closely. I would recommend resume the home medications including anxiety medications. DVT prophylaxis, incentive spirometer. Follow the patient closely with you. The patient may be asked to follow up with primary care physician closely after discharge. MMODL / IJN: [id number] /
[2022-08-03] MEDS: LACTATED RINGERS 1,000 ML IV SCH (06:17)
[2022-08-03 06:18] LABS: Glucose,Whole Blood 95 mg/dL (70-110)
[2022-08-03] MEDS ORDERED: LEVOTHYROXINE 75 MCG TAB PO SCH (06:30)
[2022-08-03] MEDS ORDERED: 1: THIAMINE 100 MG, FOLIC ACID 1 MG, POTASSIUM CHLORIDE 20 MEQ in SODIUM CHLORIDE 0.9% 1 IV SCH ×5 (08:00)
[2022-08-03 08:04] VITALS: BP 104/63; RESP 16
[2022-08-03 08:23] VITALS: TEMP 98.5
[2022-08-03] MEDS: ENOXAPARIN 40 MG/0.4 ML SYRINGE SQ SCH (08:33)
[2022-08-03] MEDS: PROPRANOLOL 20 MG TAB PO SCH (08:33)
[2022-08-03] MEDS: PREGABALIN 75 MG CAP PO SCH (08:33)
[2022-08-03] MEDS: ALBUTEROL NEBULIZED 2.5 MG/3 ML INHALATION SCH ×2 (08:45→12:02)
[2022-08-03] MEDS ORDERED: DULoxetine HCL 30 MG CAPSULE.DR PO SCH (09:00)
[2022-08-03] MEDS ORDERED: PANTOPRAZOLE 40 MG/10 ML VIAL IV SCH (09:00)
[2022-08-03] MEDS ORDERED: ARIPiprazole 15 MG TAB PO SCH (09:00)
[2022-08-03 10:55] LABS: Basophils # (A) 0.01 X 10*3/uL (0.00-0.10); Basophils % (A) 0.1 %; Eosinophils # (A) 0 X 10*3/uL (0.04-0.35); Eosinophils % (A) 0 %; HCT 37.9 % (37.2-46.3); HGB 12.2 g/dL (12.0-15.0); Immature Grans, Automated 0.2 %; Lymphocytes # (A) 0.72 X 10*3/uL (0.90-5.00); Lymphocytes % (A) 8.4 %; MCHC 32.2 g/dL (32.0-37.0); MCV 93.3 fL (80.0-97.0); Mean Platelet Volume 12.5 fL (9.5-12.2); Monocytes # (A) 0.16 X 10*3/uL (0.20-1.00); Monocytes % (A) 1.9 %; NRBC Per 100 WBC 0 /100 WBCS (0.0-0.0); Neutrophils # (A) 7.66 X 10*3/uL (1.80-7.70); Neutrophils % (A) 89.4 %; Platelet Count 140 X 10*3/uL (140-440); RBC 4.06 X 10*6/uL (4.10-5.20); RDW 12.1 % (11.5-14.5); WBC 8.57 X 10*3/uL (4.50-10.00)
[2022-08-03 11:26] VITALS: BMI 29.9
--- NOTE | 2022-08-03 11:28 | P.DS ---
Providers Date of admission: 08/03/22 06:51 Expected date of discharge: 08/03/22 Attending physician: Deshaun Caldera Consults: 08/02/22 10:01 Consult Physician Routine Consulting Provider: Abbey Lechuga Consult Reason/Comments: Medical management Do you want consulting provider notified?: Yes Primary care physician: Physician Nonstaff Hospital Course: Discharge diagnosis 1. Morbid obesity 2. Dysphagia Hospital course This is a 46-year-old female with a lap band system. She's had chronic dysphagia related to her lip and. She is status post LAP-BAND removal with conversion to laparoscopic sleeve gastrectomy. Patient tolerated surgery well. Her pain is controlled. She's tolerating diet. She has been up and ambulating. Denies any difficulty urinating. She is stable for discharge. Please refer to chart for any further details. Physician Hydropulper Operator note has been reviewed by physician. Signing provider agrees with the documented findings, assessment, and plan of care. Patient Condition at Discharge: Stable Plan - Discharge Summary Discharge Rx Participant: Yes New Discharge Prescriptions: New HYDROcodone/APAP 5-325MG [Check 5-325] 1 tab PO Q6HR PRN 3 Days #12 tab PRN Reason: Pain bisacodyL [Dulcolax] 5 mg PO DAILY PRN #10 tab PRN Reason: Constipation Simethicone 40 mg/0.6 ml Drops [Mylicon Drops] 40 mg PO PCHS PRN #30 ml PRN Reason: Gas Ondansetron Odt [Zofran Odt] 4 mg PO Q8HR PRN #9 tab PRN Reason: Nausea Omeprazole [PriLOSEC] 40 mg PO DAILY #30 cap No Action Propranolol [Inderal] 20 mg PO BID Ferrous Sulfate [Feosol] 325 mg PO Q2D Cholecalciferol [Vitamin D3 (25 Mcg = 1000 Iu)] 25 mcg PO DAILY Pregabalin [Lyrica] 75 mg PO BID traZODone HCL 100 mg PO HS Biotin [Zikq-Drif-Nntpu] 10,000 mcg PO DAILY Ascorbic Acid [Vitamin C] 1,000 mg PO DAILY clonazePAM [KlonoPIN] 1 mg PO HS ARIPiprazole [Abilify] 15 mg PO QAM Pramipexole [Mirapex] 0.5 mg PO HS Semaglutide [Wegovy] 0.25 mg SQ TU Multivitamin/Iron/Folic Acid [Centrum Women Tablet] 1 each PO DAILY DULoxetine HCL [Cymbalta] 60 mg PO QAM Levothyroxine Sodium 150 mcg PO QAM Discharge Medication List ARIPiprazole [Abilify] 15 mg PO QAM 06/30/22 [History] Ascorbic Acid [Vitamin C] 1,000 mg PO DAILY 06/30/22 [History] Biotin [Yrkt-Psen-Xdktz] 10,000 mcg PO DAILY 06/30/22 [History] Cholecalciferol [Vitamin D3 (25 Mcg = 1000 Iu)] 25 mcg PO DAILY 06/30/22 [History] DULoxetine HCL [Cymbalta] 60 mg PO QAM 06/30/22 [History] Ferrous Sulfate [Feosol] 325 mg PO Q2D 06/30/22 [History] Multivitamin/Iron/Folic Acid [Centrum Women Tablet] 1 each PO DAILY 06/30/22 [History] Pramipexole [Mirapex] 0.5 mg PO HS 06/30/22 [History] Pregabalin [Lyrica] 75 mg PO BID 06/30/22 [History] Propranolol [Inderal] 20 mg PO BID 06/30/22 [History] Semaglutide [Wegovy] 0.25 mg SQ TU 06/30/22 [History] traZODone HCL 100 mg PO HS 06/30/22 [History] Levothyroxine Sodium 150 mcg PO QAM 07/27/22 [History] clonazePAM [KlonoPIN] 1 mg PO HS 07/27/22 [History] HYDROcodone/APAP 5-325MG [Check 5-325] 1 tab PO Q6HR PRN 3 Days #12 tab 08/03/22 [Rx] Omeprazole [PriLOSEC] 40 mg PO DAILY #30 cap 08/03/22 [Rx] Ondansetron Odt [Zofran Odt] 4 mg PO Q8HR PRN #9 tab 08/03/22 [Rx] Simethicone 40 mg/0.6 ml Drops [Mylicon Drops] 40 mg PO PCHS PRN #30 ml 08/03/22 [Rx] bisacodyL [Dulcolax] 5 mg PO DAILY PRN #10 tab 08/03/22 [Rx] Follow up [facility]ment(s[facility] [place] [facility] ([facility] will call with time) Patient Instructions/Handouts: Nutrition after Bariatric Surgery (DC), Laparoscopic Sleeve Gastrectomy (DC) Activity/Diet/Wound Care/Special Instructions: Medicine service for discharge med rec No driving while taking Check No lifting over 10 pounds Shower daily. No soaking or tub baths for 2 weeks Very light activity until you are reevaluated at your follow up appointment with your surgeon No straws or carbonated beverages Discharge Disposition: HOME SELF-CARE
[2022-08-03 12:02] LABS: Glucose,Whole Blood 110 mg/dL (70-110)
[2022-08-03 12:11] VITALS: PULSE 74
[2022-08-03 12:20] LABS: African American GFR (CKD) 127.6 (60.0-200.0); Anion Gap 14.6 mmol/L (10.00-18.00); Blood Urea Nitrogen 9.4 mg/dL (9.0-27.0); Calcium 8.8 mg/dL (8.7-10.3); Carbon Dioxide 19.4 mmol/L (20.0-27.5); Non-African American GFR(CKD) 110.1 (60.0-200.0); Phosphorus 2.5 mg/dL (2.4-5.1); Potassium 4.3 mmol/L (3.5-5.5)
[2022-08-03 12:27] LABS: Magnesium 2.1 mg/dL (1.5-2.4)
--- NOTE | 2022-08-03 22:44 | PN ---
PROGRESS NOTE DATE OF SERVICE: 08/03/2022 SUBJECTIVE: This is a 46-year-old woman who was admitted after gastric sleeve gastrectomy, is improving significantly. No chest pain. No palpitations. No fever. No shortness of breath. OBJECTIVE: VITAL SIGNS: On exam, pulse is 69, blood pressure N, respirations 16. CHEST: Clear to auscultation. CARDIOVASCULAR: S1. S2. ABDOMEN: Soft, status post surgery. LABORATORY DATA: Labs are reviewed. ASSESSMENT: 1. Status post removal of LapBand system and laparoscopic gastrectomy. 2. Anxiety, depression. 3. Hypertension. 4. Hypothyroidism. 5. History of bariatric surgery. 6. Multiple medical issues. RECOMMENDATIONS: Recommend to continue current medications. Continue symptomatic treatment. Continue incentive spirometry. Resume the home medications. Follow with primary physician after discharge. The rest of the recommendations per surgery. MMODL / IJN: [id number] / MTDD
== END 2022-08-03 12:44 | disposition home or self-care (01) ==
LOC: OR 06:14 → 4SSUR 09:53 → OR 08-03 06:51 → 4SSUR 08-03 06:51
PROVIDERS: ADMIT Surgery; ATTEND Surgery
DX: T85.898A Other specified complication of other internal prosthetic devices, implants and grafts, initial encounter (principal); R13.10 Dysphagia, unspecified; K29.50 Unspecified chronic gastritis without bleeding; E66.01 Morbid (severe) obesity due to excess calories; Z68.30 Body mass index [BMI] 30.0-30.9, adult; I10 Essential (primary) hypertension; E03.9 Hypothyroidism, unspecified; R00.0 Tachycardia, unspecified; Z90.710 Acquired absence of both cervix and uterus; Z98.51 Tubal ligation status; Z98.1 Arthrodesis status; Z98.890 Other specified postprocedural states; F41.9 Anxiety disorder, unspecified; F32.A Depression, unspecified; Z87.891 Personal history of nicotine dependence; Z80.9 Family history of malignant neoplasm, unspecified; Z83.438 Family history of other disorder of lipoprotein metabolism and other lipidemia; Z82.49 Family history of ischemic heart disease and other diseases of the circulatory system; Z83.49 Family history of other endocrine, nutritional and metabolic diseases; Z79.85 Long-term (current) use of injectable non-insulin antidiabetic drugs; Z79.890 Hormone replacement therapy; Z79.899 Other long term (current) drug therapy
CPT/HCPCS: 43774; 43775; 94640 ×4; 94760 ×2; 97161; 97165; 80051; 82310; 82565; 83735; 84100; 84520; 85025; 88307; 83036; G0378; J2250; J0330; J1100 ×2; J2710; J0690 ×2; J2405; J1650 ×2; J3010; J1170; J1885 ×2; J2704; C9113; Q9968; J2001

== ENCOUNTER → 2022-08-05 | Outpatient (CLI) | payer BC ==
[2022-08-05 14:35] VITALS: BP 90/67; PULSE 76; TEMP 99; BMI 30.2
== END | disposition home or self-care (01) ==
LOC: BARWHC3 10:04
PROVIDERS: ATTEND Surgery
DX: E66.01 Morbid (severe) obesity due to excess calories (principal); Z68.30 Body mass index [BMI] 30.0-30.9, adult; Z87.891 Personal history of nicotine dependence; Z98.84 Bariatric surgery status
CPT/HCPCS: 99211

== ENCOUNTER → 2022-08-09 | Outpatient (CLI) | payer BC ==
[2022-08-09 12:56] VITALS: BP 103/69; PULSE 83; TEMP 98; BMI 29.2
--- NOTE | 2022-08-31 11:37 | P.HPBAR ---
Bariatric H&P - History & Physicial H&P Date: 08/09/22 History & Physicial: Visit/CC: 1 week sleeve F/U Patient initial contact: Initial weight: 113.398 kg Initial weight in pounds: 250.00 Height: 5 ft 9 in Initial BMI: 36.9 Last weight: Current weight: 89.811 kg Current weight in pounds: 198.00 Current BMI: 29.2 [place] body weight (based on NIH guidelines): 65.771 kg Excess body weight loss: 49.5% The patient is a 47 year-old F who presents for Bariatric Assessment. Patient resents today for [facility] follow-up. She is one-week status post sleeve gastrectomy. She's doing quite well. She's had minimal complaints of pain. She denies any dysphagia or GERD. Past Medical History Past Medical History: Hypertension, Thyroid Disorder Additional Past Medical History / Comment(s): CURRENT: UTI, BEING TREATED WITH ANTIBIOTICS.HAS BEEN OFF ANTIHYPERTENSIIVE MED SINCE WEIGHT LOSS POST LAB BAND OR. History of Any Multi-Drug Resistant Organisms: None Reported Past Surgical History: Back Surgery, Bariatric Surgery, Tubal Ligation, Uterine Ablation Additional Past Surgical History / Comment(s): Band placed 11/15/[address] Caldera; Laminectomy, UTERINE ABLATION, LYMPH NODE FROM NECK, 04-01-16 REVISION LAMINECTOMY/DECOMPRESSION/DISCETOMY L5-S1, spinal fusion. lap band removal conversion to sleeve gastrectomy 08-02-22 Past Anesthesia/Blood Transfusion Reactions: Motion Sickness, Postoperative Nausea & Vomiting (PONV) Past Psychological History: Anxiety, No Psychological Hx Reported Smoking Status: Unknown if ever smoked Past Alcohol Use History: None Reported, Rare Additional Past Alcohol Use History / Comment(s): SMOKED FOR 19 YR, 1PPD. Past Drug Use History: None Reported - Past Family History Mother Family Medical History: Cancer Additional Family Medical History / Comment(s): KIDNEY CANCER. Surgical - Exam Vital Signs Temp Pulse BP 98 F 83 103/69 08/09/22 12:50 08/09/22 12:50 08/09/22 12:50 - General well nourished, no distress - Eyes PERRL - ENT normal pinna - Neck no masses - Respiratory normal expansion - Cardiovascular Rhythm: regular - Abdomen Abdomen: soft, non tender Bariatric Assessment & Plan Plan: Status post sleeve history. Patient did well. Follow-up in 2 weeks. Bariatric Checklist Checklist: Plan: Checklist: EGD: 1. Hiatal hernia: 2. H. Pylori: HgbA1c: Vitamin D: Smoking: Former smoker Primary care physician referral: maria elena yan ([place]) Psychiatry clearance: Cardiology clearance: Sleep study: Diet journal: VTE risk score: VTE risk level: Rehab needs at discharge:
== END ==
LOC: BARWHC3 12:23
PROVIDERS: ATTEND Surgery
DX: E66.01 Morbid (severe) obesity due to excess calories (principal); Z71.3 Dietary counseling and surveillance; Z68.29 Body mass index [BMI] 29.0-29.9, adult; Z98.84 Bariatric surgery status; I10 Essential (primary) hypertension; Z87.891 Personal history of nicotine dependence
CPT/HCPCS: 97803; 99211

== ENCOUNTER → 2022-09-06 | Outpatient (CLI) | payer BC ==
[2022-09-06 23:07] LABS: % Iron Saturation 13.04 (12.00-45.00); ALT 18 U/L (8-44); AST 17 U/L (13-35); Albumin 4.4 d/dL (3.8-4.9); Albumin/Globulin Ratio 1.57 Ratio (1.60-3.17); Alkaline Phosphatase 77 U/L (41-126); BUN/Creat Ratio 16.14 Ratio (12.00-20.00); Blood Urea Nitrogen 11.3 mg/dL (9.0-27.0); Calcium 9.9 mg/dL (8.7-10.3); Carbon Dioxide 25.7 mmol/L (21.6-31.8); Chloride 104 mmol/L (96-109); Globulin 2.8 d/dL (1.6-3.3); Glucose 75 mg/dL (70-110); Iron 33 UG/DL (50-170); Magnesium 2.2 mg/dL (1.5-2.4); Potassium 4.7 mmol/L (3.5-5.5); Sodium 141 mmol/L (135-145); Total Bilirubin 0.3 mg/dL (0.3-1.2); Total Iron Binding Capacity 253 UG/DL (228-460); Total Protein 7.2 d/dL (6.2-8.2)
[2022-09-07 07:29] LABS: HCT 43.3 % (37.2-46.3); HGB 13.4 d/dL (12.0-15.0); MCH 28.6 pg (27.0-32.0); MCHC 30.9 d/dL (32.0-37.0); MCV 92.3 FL (80.0-97.0); Mean Platelet Volume 12.6 FL (9.5-12.2); NRBC Per 100 WBC 0 X 10*3/uL (0.00-0.01); Platelet Count 218 X 10*3/uL (140-440); RBC 4.69 X 10*6/uL (4.10-5.20); RDW 12.5 % (11.5-14.5); WBC 5.47 X 10*3/uL (4.50-10.00)
[2022-09-07 12:49] LABS: Zinc, Serum 81 ug/dL (60-130)
== END | disposition home or self-care (01) ==
LOC: LABWHC1 13:33
PROVIDERS: ATTEND Surgery
DX: E66.01 Morbid (severe) obesity due to excess calories (principal); D50.8 Other iron deficiency anemias; E44.0 Moderate protein-calorie malnutrition; E55.9 Vitamin D deficiency, unspecified; T56.894A Toxic effect of other metals, undetermined, initial encounter
CPT/HCPCS: 36415; 80053; 82306; 82607; 82728; 82746; 83540; 83550; 83735; 84255; 84425; 84443; 84590; 84630; 85027

== ENCOUNTER → 2022-09-06 | Outpatient (CLI) | payer BC ==
[2022-09-06 13:12] VITALS: BP 101/72; PULSE 87; TEMP 97.7; BMI 26.9
--- NOTE | 2022-10-04 11:16 | P.HPBAR ---
Bariatric H&P - History & Physicial H&P Date: 09/06/22 History & Physicial: Visit/CC: sleeve F/U Patient initial contact: Initial weight: 113.398 kg Initial weight in pounds: 250.00 Height: 5 ft 9 in Initial BMI: 36.9 Last weight: Current weight: 82.554 kg Current weight in pounds: 182.00 Current BMI: 26.9 [place] body weight (based on NIH guidelines): 65.771 kg Excess body weight loss: 64.7% The patient is a 47 year-old F who presents for Bariatric Assessment. Patient resents today for bariatric follow. She's been doing fairly well. She has had a weight gain. She has also complaints of some mild GERD. Patient states that she is eating more. Past Medical History Past Medical History: Hypertension, Thyroid Disorder Additional Past Medical History / Comment(s): CURRENT: UTI, BEING TREATED WITH ANTIBIOTICS.HAS BEEN OFF ANTIHYPERTENSIIVE MED SINCE WEIGHT LOSS POST LAB BAND OR. History of Any Multi-Drug Resistant Organisms: None Reported Past Surgical History: Back Surgery, Bariatric Surgery, Tubal Ligation, Uterine Ablation Additional Past Surgical History / Comment(s): Band placed 11/15/[address] Caldera; Laminectomy, UTERINE ABLATION, LYMPH NODE FROM NECK, 04-01-16 REVISION LAMINECTOMY/DECOMPRESSION/DISCETOMY L5-S1, spinal fusion. lap band removal conversion to sleeve gastrectomy 08-02-22 Past Anesthesia/Blood Transfusion Reactions: Motion Sickness, Postoperative Nausea & Vomiting (PONV) Past Psychological History: Anxiety, No Psychological Hx Reported Smoking Status: Unknown if ever smoked Past Alcohol Use History: None Reported, Rare Additional Past Alcohol Use History / Comment(s): SMOKED FOR 19 YR, 1PPD. Past Drug Use History: None Reported - Past Family History Mother Family Medical History: Cancer Additional Family Medical History / Comment(s): KIDNEY CANCER. Surgical - Exam Vital Signs Temp Pulse BP 97.7 F 87 101/72 09/06/22 13:05 09/06/22 13:05 09/06/22 13:05 - General well developed, well nourished, no distress - Eyes PERRL - ENT normal pinna - Neck no masses - Respiratory normal expansion - Cardiovascular Rhythm: regular - Abdomen Abdomen: soft, non tender Bariatric Assessment & Plan Plan: Patient has had an increase in weight since her last visit. She'll work on dietary control. Her GERD is minimal will be observed. Follow-up in 4 weeks. Bariatric Checklist Checklist: Plan: Checklist: EGD: 1. Hiatal hernia: 2. H. Pylori: HgbA1c: Vitamin D: Smoking: Former smoker Primary care physician referral: maria elena yan ([place]) Psychiatry clearance: Cardiology clearance: Sleep study: Diet journal: VTE risk score: VTE risk level: Rehab needs at discharge:
== END ==
LOC: BARWHC3 12:45
PROVIDERS: ATTEND Surgery
DX: E66.01 Morbid (severe) obesity due to excess calories (principal); K21.9 Gastro-esophageal reflux disease without esophagitis; I10 Essential (primary) hypertension; E07.9 Disorder of thyroid, unspecified; Z98.84 Bariatric surgery status; Z71.3 Dietary counseling and surveillance; Z87.891 Personal history of nicotine dependence; Z79.890 Hormone replacement therapy; Z48.815 Encounter for surgical aftercare following surgery on the digestive system; Z68.26 Body mass index [BMI] 26.0-26.9, adult
CPT/HCPCS: 97803; 99211

== ENCOUNTER → 2022-10-04 | Outpatient (CLI) | payer BC ==
[2022-10-04 14:35] VITALS: BP 112/76; PULSE 76; TEMP 97.6; BMI 25.9
--- NOTE | 2022-10-22 09:58 | P.HPBAR ---
Bariatric H&P - History & Physicial H&P Date: 10/04/22 History & Physicial: Visit/CC: sleeve F/U Patient initial contact: Initial weight: 113.398 kg Initial weight in pounds: 250.00 Height: 5 ft 9 in Initial BMI: 36.9 Last weight: Current weight: 79.832 kg Current weight in pounds: 176.00 Current BMI: 25.9 [place] body weight (based on NIH guidelines): 65.771 kg Excess body weight loss: 70.4% The patient is a 47 year-old F who presents for Bariatric Assessment. Patient presents today for bariatric follow-up. She's had multiple into GERD. She denies any dysphagia or abdominal pain. Past Medical History Past Medical History: Hypertension, Thyroid Disorder Additional Past Medical History / Comment(s): CURRENT: UTI, BEING TREATED WITH ANTIBIOTICS.HAS BEEN OFF ANTIHYPERTENSIIVE MED SINCE WEIGHT LOSS POST LAB BAND OR. History of Any Multi-Drug Resistant Organisms: None Reported Past Surgical History: Back Surgery, Bariatric Surgery, Tubal Ligation, Uterine Ablation Additional Past Surgical History / Comment(s): Band placed 11/15/[address] Caldera; Laminectomy, UTERINE ABLATION, LYMPH NODE FROM NECK, 04-01-16 REVISION LAMINECTOMY/DECOMPRESSION/DISCETOMY L5-S1, spinal fusion. lap band removal conversion to sleeve gastrectomy 08-02-22 Past Anesthesia/Blood Transfusion Reactions: Motion Sickness, Postoperative Nausea & Vomiting (PONV) Past Psychological History: Anxiety, No Psychological Hx Reported Smoking Status: Unknown if ever smoked Past Alcohol Use History: None Reported, Rare Additional Past Alcohol Use History / Comment(s): SMOKED FOR 19 YR, 1PPD. Past Drug Use History: None Reported - Past Family History Mother Family Medical History: Cancer Additional Family Medical History / Comment(s): KIDNEY CANCER. Surgical - Exam Vital Signs Temp Pulse BP 97.6 F 76 112/76 10/04/22 14:33 10/04/22 14:33 10/04/22 14:33 - General well developed, well nourished, no distress - Eyes PERRL - ENT normal pinna - Neck no masses - Respiratory normal expansion - Cardiovascular Rhythm: regular - Abdomen Abdomen: soft, non tender Bariatric Assessment & Plan Plan: Resolving morbid obesity. Patient's GERD is minimal and will be observed. She'll follow-up in 4 weeks Bariatric Checklist Checklist: Plan: Checklist: EGD: 1. Hiatal hernia: 2. H. Pylori: HgbA1c: Vitamin D: Smoking: Former smoker Primary care physician referral: maria elena yan ([place]) Psychiatry clearance: Cardiology clearance: Sleep study: Diet journal: VTE risk score: VTE risk level: Rehab needs at discharge:
== END ==
LOC: BARWHC3 13:46
PROVIDERS: ATTEND Surgery
DX: Z09 Encounter for follow-up examination after completed treatment for conditions other than malignant neoplasm (principal); E66.01 Morbid (severe) obesity due to excess calories; K21.9 Gastro-esophageal reflux disease without esophagitis; I10 Essential (primary) hypertension; E07.9 Disorder of thyroid, unspecified; Z71.3 Dietary counseling and surveillance; Z87.891 Personal history of nicotine dependence; Z68.26 Body mass index [BMI] 26.0-26.9, adult; Z79.899 Other long term (current) drug therapy; Z79.890 Hormone replacement therapy
CPT/HCPCS: 97802; 99211

== ENCOUNTER → 2022-11-01 | Outpatient (CLI) | payer BC ==
[2022-11-01 13:16] VITALS: BP 108/67; PULSE 83; TEMP 98.3; BMI 25.5
--- NOTE | 2022-11-01 13:32 | P.HPBAR ---
Bariatric H&P - History & Physicial H&P Date: 11/01/22 History & Physicial: Visit/CC: 3 month sleeve F/U Patient initial contact: Initial weight: 113.398 kg Initial weight in pounds: 250.00 Height: 5 ft 9 in Initial BMI: 36.9 Last weight: Current weight: 78.471 kg Current weight in pounds: 173.00 Current BMI: 25.5 [place] body weight (based on NIH guidelines): 65.771 kg Excess body weight loss: 73.3% The patient is a 47 year-old F who presents for Bariatric Assessment. Patient resents today for sleeve gastrectomy follow-up. She's loss another 3 pounds. She has minimal GERD symptoms. She is otherwise doing well. Patient states that she is doing poor dietary choices with increased carbohydrates in her diet. Past Medical History Past Medical History: Hypertension, Thyroid Disorder Additional Past Medical History / Comment(s): CURRENT: UTI, BEING TREATED WITH ANTIBIOTICS.HAS BEEN OFF ANTIHYPERTENSIIVE MED SINCE WEIGHT LOSS POST LAB BAND OR. History of Any Multi-Drug Resistant Organisms: None Reported Past Surgical History: Back Surgery, Bariatric Surgery, Tubal Ligation, Uterine Ablation Additional Past Surgical History / Comment(s): Band placed 11/15/[address] Caldera; Laminectomy, UTERINE ABLATION, LYMPH NODE FROM NECK, 04-01-16 REVISION LAMINECTOMY/DECOMPRESSION/DISCETOMY L5-S1, spinal fusion. lap band removal conversion to sleeve gastrectomy 08-02-22 Past Anesthesia/Blood Transfusion Reactions: Motion Sickness, Postoperative Nausea & Vomiting (PONV) Past Psychological History: Anxiety, No Psychological Hx Reported Smoking Status: Unknown if ever smoked Past Alcohol Use History: None Reported, Rare Additional Past Alcohol Use History / Comment(s): SMOKED FOR 19 YR, 1PPD. Past Drug Use History: None Reported - Past Family History Mother Family Medical History: Cancer Additional Family Medical History / Comment(s): KIDNEY CANCER. Surgical - Exam Vital Signs Temp Pulse BP 98.3 F 83 108/67 11/01/22 13:11 11/01/22 13:11 11/01/22 13:11 - General well developed, well nourished, no distress - Eyes PERRL - ENT normal pinna - Neck no masses - Respiratory normal expansion - Cardiovascular Rhythm: regular - Abdomen Abdomen: soft, non tender Bariatric Assessment & Plan Plan: Resolving morbid obesity. Patient's GERD is minimal and will be observed. She'll follow-up in 4 weeks. She will try to work on her dietary habits Bariatric Checklist Checklist: Plan: Checklist: EGD: 1. Hiatal hernia: 2. H. Pylori: HgbA1c: Vitamin D: Smoking: Former smoker Primary care physician referral: maria elena yan ([place]) Psychiatry clearance: Cardiology clearance: Sleep study: Diet journal: VTE risk score: VTE risk level: Rehab needs at discharge:
[2022-11-01 20:04] LABS: HCT 41.1 % (37.2-46.3); HGB 13.9 d/dL (12.0-15.0); MCH 30.3 pg (27.0-32.0); MCHC 33.8 d/dL (32.0-37.0); MCV 89.7 FL (80.0-97.0); NRBC Per 100 WBC 0 X 10*3/uL (0.00-0.01); Platelet Count 176 X 10*3/uL (140-440); RBC 4.58 X 10*6/uL (4.10-5.20); WBC 5.61 X 10*3/uL (4.50-10.00)
[2022-11-01 20:57] LABS: % Iron Saturation 17.18 (12.00-45.00); ALT 24 U/L (8-44); AST 21 U/L (13-35); Albumin 4.7 d/dL (3.8-4.9); Albumin/Globulin Ratio 1.96 Ratio (1.60-3.17); Alkaline Phosphatase 74 U/L (41-126); BUN/Creat Ratio 13.43 Ratio (12.00-20.00); Blood Urea Nitrogen 9.4 mg/dL (9.0-27.0); Calcium 9.5 mg/dL (8.7-10.3); Carbon Dioxide 25.3 mmol/L (21.6-31.8); Chloride 103 mmol/L (96-109); Globulin 2.4 d/dL (1.6-3.3); Glucose 78 mg/dL (70-110); Iron 50 UG/DL (50-170); Magnesium 2.4 mg/dL (1.5-2.4); Potassium 4.4 mmol/L (3.5-5.5); Sodium 140 mmol/L (135-145); Total Bilirubin <0.2 mg/dL (0.3-1.2); Total Iron Binding Capacity 291 UG/DL (228-460); Total Protein 7.1 d/dL (6.2-8.2)
[2022-11-02 11:31] LABS: Zinc, Serum 78 ug/dL (60-130)
[2022-11-03 04:21] LABS: Vitamin A 52 ug/dL (38-106)
== END ==
LOC: BARWHC3 12:46
PROVIDERS: ATTEND Surgery
DX: E66.01 Morbid (severe) obesity due to excess calories (principal); E55.9 Vitamin D deficiency, unspecified; T56.894A Toxic effect of other metals, undetermined, initial encounter; E44.0 Moderate protein-calorie malnutrition; D50.8 Other iron deficiency anemias; I10 Essential (primary) hypertension; E07.9 Disorder of thyroid, unspecified; K21.9 Gastro-esophageal reflux disease without esophagitis; Z98.84 Bariatric surgery status; Z68.25 Body mass index [BMI] 25.0-25.9, adult; Z48.815 Encounter for surgical aftercare following surgery on the digestive system; Z46.51 Encounter for fitting and adjustment of gastric lap band; Z87.891 Personal history of nicotine dependence; Z79.890 Hormone replacement therapy
CPT/HCPCS: 80053; 82306; 82607; 82728; 82746; 83540; 83550; 83735; 84255; 84425; 84443; 84590; 84630; 85027; 99211

== ENCOUNTER → 2023-05-16 | Outpatient (CLI) | payer BC ==
[2023-05-16 11:45] VITALS: BP 106/72; PULSE 73; TEMP 98.2; BMI 31.6
--- NOTE | 2023-05-16 14:54 | P.HPBAR ---
Bariatric H&P - History & Physicial H&P Date: 05/16/23 History & Physicial: Visit/CC: sleeve F/U Patient initial contact: Initial weight: 113.398 kg Initial weight in pounds: 250.00 Height: 5 ft 9 in Initial BMI: 36.9 Last weight: Current weight: 97.069 kg Current weight in pounds: 214.00 Current BMI: 31.6 [place] body weight (based on NIH guidelines): 65.771 kg Excess body weight loss: 34.2% The patient is a 47 year-old F who presents for Bariatric Assessment. This is a 47-year-old female who presents today for follow-up. Patient underwent previous sleeve gastrectomy. Patient has had a weight gain since her last visit. The patient states she feels no restriction with her sleeve. She currently weighs 214 pounds. At her last visit she was 177 pounds. She denies any dysphagia. Past Medical History Past Medical History: Hypertension, Thyroid Disorder Additional Past Medical History / Comment(s): CURRENT: UTI, BEING TREATED WITH ANTIBIOTICS.HAS BEEN OFF ANTIHYPERTENSIIVE MED SINCE WEIGHT LOSS POST LAB BAND OR. History of Any Multi-Drug Resistant Organisms: None Reported Past Surgical History: Back Surgery, Bariatric Surgery, Tubal Ligation, Uterine Ablation Additional Past Surgical History / Comment(s): Band placed 11/15/[address] Caldera; Laminectomy, UTERINE ABLATION, LYMPH NODE FROM NECK, 04-01-16 REVISION LAMINECTOMY/DECOMPRESSION/DISCETOMY L5-S1, spinal fusion. lap band removal conversion to sleeve gastrectomy 08-02-22 Past Anesthesia/Blood Transfusion Reactions: Motion Sickness, Postoperative Nausea & Vomiting (PONV) Past Psychological History: Anxiety, No Psychological Hx Reported Smoking Status: Unknown if ever smoked Past Alcohol Use History: None Reported, Rare Additional Past Alcohol Use History / Comment(s): SMOKED FOR 19 YR, 1PPD. Past Drug Use History: None Reported - Past Family History Mother Family Medical History: Cancer Additional Family Medical History / Comment(s): KIDNEY CANCER. Surgical - Exam Vital Signs Temp Pulse BP 98.2 F 73 106/72 05/16/23 11:25 05/16/23 11:25 05/16/23 11:25 - General well developed, well nourished, no distress - Eyes PERRL - ENT normal pinna - Neck no masses - Respiratory normal expansion Bariatric Assessment & Plan Plan: Patient's gerd is minimal. The patient will evaluate her diet intake. She will follow-up in 4 weeks. Bariatric Checklist Checklist: Plan: Checklist: EGD: 1. Hiatal hernia: 2. H. Pylori: HgbA1c: Vitamin D: Smoking: Former smoker Primary care physician referral: maria elena yan ([place]) Psychiatry clearance: Cardiology clearance: Sleep study: Diet journal: VTE risk score: VTE risk level: Rehab needs at discharge:
== END ==
LOC: BARWHC3 10:30
PROVIDERS: ATTEND Surgery
DX: E66.01 Morbid (severe) obesity due to excess calories (principal); K21.9 Gastro-esophageal reflux disease without esophagitis; D50.8 Other iron deficiency anemias; E55.9 Vitamin D deficiency, unspecified; T56.894A Toxic effect of other metals, undetermined, initial encounter; K90.9 Intestinal malabsorption, unspecified; F41.9 Anxiety disorder, unspecified; I10 Essential (primary) hypertension; E07.9 Disorder of thyroid, unspecified; Z71.3 Dietary counseling and surveillance; Z98.84 Bariatric surgery status; Z87.440 Personal history of urinary (tract) infections; Z98.51 Tubal ligation status; Z68.31 Body mass index [BMI] 31.0-31.9, adult; Z79.890 Hormone replacement therapy; Z79.84 Long term (current) use of oral hypoglycemic drugs; Z79.899 Other long term (current) drug therapy; Z87.891 Personal history of nicotine dependence
CPT/HCPCS: 99211